=== PATIENT | female | born 1990 | race Caucasian/White ===

== ENCOUNTER 2017-01-20 08:25 | Outpatient (CLI) | payer MEDICAID ==
[2017-01-20 10:01] LABS: THYROID STIMULATING HORMONE 0.57 uIU/mL (0.34-5.60)
[2017-01-20 10:07] LABS: PROLACTIN 17.09 ng/mL
[2017-01-25 19:11] LABS: TEST RESULT REPORT
== END 2017-01-20 08:26 | disposition home or self-care (01) ==
LOC: LAB 08:25
PROVIDERS: ATTEND Internal Medicine Endocrinology, Diabetes & Metabolism
DX: E03.8 Other specified hypothyroidism (principal)
CPT/HCPCS: 36415; 81599; 82533; 83519; 84146; 84439; 84443; 86800

== ENCOUNTER 2017-01-25 15:56 | Outpatient (CLI) | payer MEDICAID | END 2017-01-25 15:57 | disposition home or self-care (01) | LOC: LAB.R 15:56 | PROVIDERS: ATTEND Obstetrics & Gynecology | DX: Z11.3 Encounter for screening for infections with a predominantly sexual mode of transmission (principal) | CPT/HCPCS: 87491; 87591 ==

== ENCOUNTER 2017-02-01 02:21 | Emergency (ER) | payer MEDICAID ==
[2017-02-01 02:46] LABS: BILIRUBIN,URINE NEGATIVE (NEGATIVE)
[2017-02-01 02:48] LABS: HCG UR QUAL POSITIVE; UA CHARGE (STRIP ONLY) YES; UR CULTURE IF IND NOT INDICATED
[2017-02-01 02:53] LABS: BASOPHILS % (AUTO) 0.2 %; EOSINOPHILS % (AUTO) 0.4 %; HCT - HEMATOCRIT 37.7 % (37.0-47.0); HGB - HEMOGLOBIN 13.2 g/dL (12.0-16.0); LYMPHOCYTES # (AUTO) 0.5 10^3/uL (1.5-3.5); LYMPHOCYTES % (AUTO) 5.3 %; MEAN CORPUSCULAR HEMOGLOBIN 29.7 pg (27.0-31.0); MEAN CORPUSCULAR HGB CONC 34.9 g/dL (32.0-36.0); MEAN PLATELET VOLUME 7.9 fL (7.9-10.8); MONOCYTES # (AUTO) 0.1 10^3/uL (0.0-1.0); MONOCYTES % (AUTO) 1.4 %; NEUTROPHILS # (AUTO) 8.7 10^3/uL (1.5-6.6); NEUTROPHILS % (AUTO) 92.7 %; RED BLOOD COUNT 4.43 10^6/uL (4.20-5.40); RED CELL DISTRIBUTION WIDTH 13.7 % (12.0-15.0); UNCORRECTED WHITE BLOOD COUNT 9.4 x10^3/uL; WHITE BLOOD COUNT 9.4 x10^3/uL (4.8-10.8)
[2017-02-01 03:05] LABS: ALBUMIN/GLOBULIN RATIO 1.6 (1.0-2.2); BILIRUBIN,TOTAL 0.9 mg/dL (0.2-1.0); CALCIUM 7.8 mg/dL (8.5-10.3); CREATININE 0.5 mg/dL (0.4-1.0); POTASSIUM 2.8 mmol/L (3.5-5.0); TOTAL PROTEIN 6.6 g/dL (6.7-8.2)
--- NOTE | 2017-02-01 03:16 | ED Physician Documentation ---
PD HPI ABD PAIN - Stated complaint Stated Complaint: N/V, ABD PAIN, - Chief complaint Chief Complaint: Abd Pain - History obtained from History obtained from: Patient - History of Present Illness Timing - onset: Enter time (00:00 (midnight)), How many hours ago (3), Today Timing - duration: Hours Timing - details: Abrupt onset Pain level now: 3 Quality: Pain Location: All over / everywhere Radiation: Other (no radiation) Improved by: Other (no ameliorating factors) Worsened by: Eating Associated symptoms: Nausea, Vomiting. No: Fever (denies fever, although she is febrile in ED at triage), Diarrhea, Loss of appetite Recently seen: Clinic (had outpatient US few days ago, revealed IUP (she has picture of this and shows it to me)) - Additional information Additional information: c/o nausea, vomiting for over a week, but intermittent until past several hours when it became persistent. now unable to tolerate any PO including sips of water. does not have antinauseants at home. she is approximately 7 weeks . also has cramping abdominal pain (when she vomits). this is her second ; first was and only mild morning sickness . Review of Systems Constitutional: reports: Fever (she is /was unaware of fever, but fever detected in triage tonight). denies: Chills, Sweats Ears: denies: Ear pain Nose: reports: Reviewed and negative Throat: reports: Sore throat (from all the vomiting (per patient)) Cardiac: reports: Reviewed and negative Respiratory: reports: Reviewed and negative GI: reports: Abdominal Pain, Nausea, Vomiting : reports: Now EGA (7 weeks). denies: Dysuria, Frequency PD PAST MEDICAL HISTORY - Past Medical History Past Medical History: Yes Cardiovascular: None Respiratory: None Neuro: None Endocrine/Autoimmune: HyPOthyroidism GI: None LAUNDRY TECHNICIAN: None : None HEENT: None Psych: None Musculoskeletal: None Derm: None - Past Surgical History Past Surgical History: Yes General: Appendectomy /LAUNDRY TECHNICIAN: section HEENT: Tonsil/Adenoidectomy - Present Medications Home Medications: Ambulatory Orders Medication Instructions Recorded Confirmed Levothyroxine Sodium [Levothroid] 150 mcg PO DAILY 09/05/12 04/08/14 Clindamycin [Cleocin] 300 mg PO Q6H #28 capsule 03/09/16 HYDROcod/ACETAM 5/325 [[place] 5/325] 1 - 2 ea PO Q6H PRN #15 tablet 03/09/16 Levonorgestrel-Ethin Estradiol 1 each PO 03/09/16 03/09/16 [Jolessa] Metoclopramide [Reglan] 10 mg PO Q6H PRN #14 tablet 02/01/17 - Allergies Allergies/Adverse Reactions: Allergies Allergy/AdvReac Type Severity Reaction Status Date / Time Penicillins Allergy Intermediate Edema Verified 09/05/12 09:12 - Social History Does the pt smoke?: No Smoking Status: Former smoker Does the pt drink ETOH?: No Does the pt have substance abuse?: Yes Substance Use and Type: Marijuana - Immunizations Immunizations are current?: Yes - POLST Patient has POLST: No PD ED PE NORMAL - Vitals Vital signs reviewed: Yes - General General: Alert and oriented X 3, No acute distress, Well developed/nourished - HEENT HEENT: Other (dry mucous membranes) - Neck Neck: Supple, no meningeal sign - Cardiac Cardiac: RRR, No murmur - Respiratory Respiratory: No respiratory distress, Clear bilaterally - Abdomen Abdomen: Normal bowel sounds, Soft, Non tender, Non distended - Back Back: No CVA TTP - Derm Derm: Normal color, Warm and dry Results - Vitals Vitals: Vital Signs - 24 hr 02/01/17 02/01/17 02/01/17 02:25 05:29 06:31 Temperature 38.2 C H 37.1 C Heart Rate 107 H 89 78 Respiratory 22 16 18 Rate Blood Pressure 114/66 113/58 L 121/70 O2 Saturation 100 97 100 Oxygen O2 Source Room air - Labs Labs: Laboratory Tests 02/01/17 02/01/17 02/01/17 02:30 02:43 02:43 WBC 9.4 RBC 4.43 Hgb 13.2 Hct 37.7 MCV 85.0 MCH 29.7 MCHC 34.9 RDW 13.7 Plt Count 154 MPV 7.9 Neut # 8.7 H Lymph # 0.5 L Bland # 0.1 Eos # 0.0 Baso # 0.0 Absolute Nucleated RBC 0.00 Nucleated RBC % 0.0 Sodium 131 L Potassium 2.8 L Chloride 102 Carbon Dioxide 18 L Anion Gap 11.0 BUN 10 Creatinine 0.5 Estimated GFR (MDRD) 147 Glucose 109 H Calcium 7.8 L Total Bilirubin 0.9 AST 21 ALT 13 Alkaline Phosphatase 37 L Total Protein 6.6 L Albumin 4.1 Globulin 2.5 Albumin/Globulin Ratio 1.6 Lipase 19 L HCG, Quant Urine Color YELLOW Urine Clarity CLEAR Urine pH 6.0 Ur Specific [place] 1.015 Urine Protein NEGATIVE Urine Glucose (UA) NEGATIVE Urine Ketones NEGATIVE Urine Occult Blood NEGATIVE Urine Nitrite NEGATIVE Urine Bilirubin NEGATIVE Urine Urobilinogen 0.2 (NORMAL) Ur Leukocyte Esterase NEGATIVE Ur Microscopic Review NOT INDICATED Urine Culture Comments NOT INDICATED Urine HCG, Qual POSITIVE 02/01/17 02:43 WBC RBC Hgb Hct MCV MCH MCHC RDW Plt Count MPV Neut # Lymph # B[place] # Eos # Baso # Absolute Nucleated RBC Nucleated RBC % Sodium Potassium Chloride Carbon Dioxide Anion Gap BUN Creatinine Estimated GFR (MDRD) Glucose Calcium Total Bilirubin AST ALT Alkaline Phosphatase Total Protein Albumin Globulin Albumin/Globulin Ratio Lipase HCG, Quant 403902.00 Urine Color Urine Clarity Urine pH Ur Specific [place] Urine Protein Urine Glucose (UA) Urine Ketones Urine Occult Blood Urine Nitrite Urine Bilirubin Urine Urobilinogen Ur Leukocyte Esterase Ur Microscopic Review Urine Culture Comments Urine HCG, Qual PD MEDICAL DECISION MAKING - ED course Complexity details: reviewed results, considered differential, d/w patient ED course: patient specifically states she does not want Zofran, as she is concerned about the data that suggests a link to defects. thus, Reglan was given to good effect: patient, on reevaluation after tests were resulted and 1500 mL of normal saline infused, had moist mucous membranes, appeared comfortable, and reported substantial relief of her nausea and resolution of her vomiting. She was able to tolerate oral potassium prior to discharge.ultrasound was not performed, as patient had recent ultrasound demonstrating IUP, and patient denies pelvic pain, denies vaginal bleeding. Departure - Departure Disposition: 01 Home, Self Care Clinical Impression: Hypokalemia Qualifiers: Weeks of gestation: less than 8 weeks Qualified Code(s): Z3A.01 - Less than 8 weeks gestation of Vomiting Qualifiers: Vomiting type: unspecified Vomiting Intractability: non-intractable Nausea presence: with nausea Qualified Code(s): R11.2 - Nausea with vomiting, unspecified Fever Qualifiers: Fever type: unspecified Qualified Code(s): R50.9 - Fever, unspecified Condition: Good Instructions: ED Fever Unconf Cause, ED Preg Morning Sickness, ED Potassium Deficiency Follow-Up: Isaiah Garcia MD [Provider Admit Priv/Credential] - Prescriptions: Metoclopramide [Reglan] 10 mg PO Q6H PRN #14 tablet PRN Reason: Nausea / Vomiting Discharge Date/Time: 02/01/17 06:31
[2017-02-01] MEDS ORDERED: METOCLOPRAMIDE 10 MG/2 ML VIAL IVP STA (03:43)
[2017-02-01] MEDS ORDERED: SODIUM CHLORIDE 0.9% 1,000 ML IV STA ×2 (03:43→03:58)
[2017-02-01] MEDS ORDERED: ACETAMINOPHEN 1,000 MG/100 ML 100 ML IV STA (03:43)
[2017-02-01] MEDS ORDERED: ACETAMINOPHEN 1,000 MG/100 ML 100 ML IV ONE (03:50)
[2017-02-01] MEDS ORDERED: METOCLOPRAMIDE 10 MG/2 ML VIAL ONE (03:50)
[2017-02-01] MEDS ORDERED: POTASSIUM BICARB 25 MEQ TABLET PO STA (04:58)
[2017-02-01] MEDS ORDERED: POTASSIUM BICARB 25 MEQ TABLET PO ONE (05:07)
[2017-02-01 06:32] VITALS: BP 121/70
== END 2017-02-01 06:31 | disposition home or self-care (01) ==
LOC: EDUNIT# → ED 02:21
DX: O26.891 Other specified pregnancy related conditions, first trimester (principal); E87.6 Hypokalemia; O21.9 Vomiting of pregnancy, unspecified; Z3A.01 Less than 8 weeks gestation of pregnancy; E03.9 Hypothyroidism, unspecified; Z87.891 Personal history of nicotine dependence
CPT/HCPCS: 36415; 80053; 81003; 81025; 83690; 84702; 85025; 96361; 96365; 96375; 99284; A9270; J0131; 81001; 87086

== ENCOUNTER 2017-03-25 09:43 | Outpatient (CLI) | payer MEDICAID ==
[2017-03-25 15:53] LABS: BASOPHILS % (AUTO) 0.2 %; EOSINOPHILS # (AUTO) 0.3 10^3/uL (0.0-0.7); EOSINOPHILS % (AUTO) 2.8 %; HGB - HEMOGLOBIN 12.6 g/dL (12.0-16.0); LYMPHOCYTES # (AUTO) 2.2 10^3/uL (1.5-3.5); LYMPHOCYTES % (AUTO) 23.2 %; MEAN CORPUSCULAR HEMOGLOBIN 30.7 pg (27.0-31.0); MEAN CORPUSCULAR HGB CONC 35.3 g/dL (32.0-36.0); MONOCYTES # (AUTO) 0.4 10^3/uL (0.0-1.0); MONOCYTES % (AUTO) 3.8 %; NEUTROPHILS # (AUTO) 6.7 10^3/uL (1.5-6.6); PLT - PLATELET COUNT 197 10^3/uL (130-450); RED BLOOD COUNT 4.09 10^6/uL (4.20-5.40); WHITE BLOOD COUNT 9.6 x10^3/uL (4.8-10.8)
[2017-03-25 16:23] LABS: THYROID STIMULATING HORMONE 1.61 uIU/mL (0.34-5.60)
[2017-03-25 16:24] LABS: FREE T4 (FREE THYROXINE) 0.8 ng/dL (0.58-1.64)
[2017-03-25 16:58] LABS: BILIRUBIN,URINE NEGATIVE (NEGATIVE); GLUCOSE, URINE (UA) NEGATIVE (NEGATIVE); KETONES,URINE (UA) NEGATIVE (NEGATIVE); LEUKOCYTE ESTERASE, URINE NEGATIVE (NEGATIVE); NITRITE,URINE NEGATIVE (NEGATIVE); OCCULT BLOOD,URINE NEGATIVE (NEGATIVE); PH,URINE 7.5 PH (5.0-7.5); PROTEIN,URINE NEGATIVE (NEGATIVE); UROBILINOGEN,URINE 0.2 (NORMAL) E.U./dL (NORMAL)
[2017-03-25 17:13] LABS: CLARITY,URINE CLEAR (CLEAR)
[2017-03-25 17:14] LABS: RBC,URINE 0-5 /HPF (0-5); SQUAMOUS EPITHELIAL CELL,UR RARE Squamous (<= Few)
[2017-03-25 17:15] LABS: BACTERIA,URINE None Seen /HPF (None Seen)
[2017-03-26 11:51] LABS: HIV AG/AB 4TH GEN NON-REACTIVE (NON-REACTIVE)
[2017-03-26 13:23] LABS: HEPATITIS B SURFACE ANTIGEN NON-REACTIVE (NON-REACTIVE)
== END 2017-03-25 09:44 | disposition home or self-care (01) ==
LOC: LAB.N 09:43
PROVIDERS: ATTEND Obstetrics & Gynecology
DX: Z36.9 Encounter for antenatal screening, unspecified (principal); Z13.29 Encounter for screening for other suspected endocrine disorder; C73 Malignant neoplasm of thyroid gland; E23.6 Other disorders of pituitary gland
CPT/HCPCS: 36415; 81001; 81599; 82024; 84305; 84439; 84443; 85025; 86592; 86762; 86850; 86900; 86901; 87340; 87389

== ENCOUNTER 2017-04-28 07:28 | Outpatient (CLI) | payer MEDICAID ==
--- NOTE | 2017-04-28 12:39 | Ultrasound Report ---
DATE OF SERVICE: 04/28/2017 OB ULTRASOUND: 04/28/2017 CLINICAL INDICATION: anatomy. TECHNIQUE: Real-time scanning was performed with insurance representative static images obtained. LAST MENSTRUAL PERIOD Clinical Age --- US Age 20 weeks 1 day EFW Hadlock 324 g EFW% Hadlock --- Heart Rate 150 bpm EDC --- US EDC 09/14/2017 BPD [place] 20 weeks 3 days; Mean mm 47.5 HC [place] 20 weeks 2 days; Mean mm 178.9 AC [place] 20 weeks 1 day; Mean mm 149.4 FL [place] 19 weeks 4 days; Mean mm 30.9 Presentation variable Placental Location posterior Cervical Length 3.5 cm Amniotic Fluid 4.3 cm FINDINGS: There is a single viable intrauterine gestation, in variable position. heart rate is 150 BPM. The placenta is posterior without evidence of previa. Amniotic fluid volume is subjectively normal, with a deepest pocket of 4.3. By size, the fetus measures 20 weeks 1 day (20 weeks 2 days by LMP). The following anatomic structures were visualized and appear normal: The intracranial contents, including the ventricles and posterior fossa; the lips and orbits; the spine; the heart, including 4 chamber view and outflow tracts, and diaphragm; the abdominal contents, including the stomach, the bilateral kidneys, and urinary bladder, as well as a normal 3 vessel cord insertion; 4 limbs. No free fluid or adnexal lesion is appreciated. IMPRESSION: SINGLE VIABLE INTRAUTERINE GESTATION, WITH SIZE IN KEEPING WITH LMP DATING. NORMAL ANATOMIC SURVEY. TD: 04/28/2017 12:28 [facility]
== END 2017-04-28 07:29 | disposition home or self-care (01) ==
LOC: DI 07:28
PROVIDERS: ATTEND Obstetrics & Gynecology
DX: Z36.9 Encounter for antenatal screening, unspecified (principal)
CPT/HCPCS: 76811

== ENCOUNTER 2017-05-01 20:13 | Outpatient (CLI) | payer MEDICAID ==
[2017-05-01] MEDS ORDERED: HYDROcod/ACETAM 5/325 MG TABLET PO PRN (21:01)
[2017-05-01 21:09] VITALS: BP 125/68
== END 2017-05-01 21:55 | disposition home or self-care (01) ==
LOC: WFO 20:13 → FBP 20:15 → WFO 21:55
PROVIDERS: ATTEND Obstetrics & Gynecology
DX: O99.89 Other specified diseases and conditions complicating pregnancy, childbirth and the puerperium (principal); Z3A.20 20 weeks gestation of pregnancy; M54.5 Low back pain
CPT/HCPCS: 99212; A9270

== ENCOUNTER 2017-05-17 10:53 | Outpatient (CLI) | payer MEDICAID ==
[2017-05-17 12:55] LABS: T4 (THYROXINE) 14.34 ug/dL (6.09-12.23)
[2017-05-17 12:59] LABS: THYROID STIMULATING HORMONE 0.41 uIU/mL (0.34-5.60)
[2017-05-17 13:01] LABS: FREE T4 (FREE THYROXINE) 0.89 ng/dL (0.58-1.64)
== END 2017-05-17 10:54 | disposition home or self-care (01) ==
LOC: LAB.N 10:53
PROVIDERS: ATTEND Internal Medicine Endocrinology, Diabetes & Metabolism
DX: E03.8 Other specified hypothyroidism (principal); C73 Malignant neoplasm of thyroid gland
CPT/HCPCS: 36415; 81599; 84436; 84439; 84443

== ENCOUNTER 2017-06-09 10:56 | Outpatient (CLI) | payer MEDICAID ==
[2017-06-09 11:21] VITALS: BP 113/70
[2017-06-09 11:27] LABS: BILIRUBIN,URINE NEGATIVE (NEGATIVE); CLARITY,URINE CLEAR (CLEAR); GLUCOSE, URINE (UA) NEGATIVE (NEGATIVE); KETONES,URINE (UA) NEGATIVE (NEGATIVE); LEUKOCYTE ESTERASE, URINE NEGATIVE (NEGATIVE); NITRITE,URINE NEGATIVE (NEGATIVE); OCCULT BLOOD,URINE NEGATIVE (NEGATIVE); PH,URINE 7.5 PH (5.0-7.5); PROTEIN,URINE NEGATIVE (NEGATIVE); UROBILINOGEN,URINE 0.2 (NORMAL) E.U./dL (NORMAL)
[2017-06-09 11:35] LABS: BACTERIA,URINE Rare /HPF (None Seen); RBC,URINE 0-5 /HPF (0-5); SQUAMOUS EPITHELIAL CELL,UR FEW Squamous (<= Few)
[2017-06-09 12:39] LABS: RUPTURE OF MEMBRANES PLUS NEGATIVE (NEGATIVE)
--- NOTE | 2017-06-09 14:25 | HISTORY & PHYSICAL EXAMINATION ---
DATE OF SERVICE: 06/09/2017 Physician: Isaiah Fontana MD DIAGNOSES 1. Labor and delivery check for uterine contractions and possible rupture of membranes. 2. Patient not in labor and rupture of membranes ruled out. HISTORY OF PRESENT ILLNESS: The patient is a 26-year-old 2, para 1 woman, who [facility] and notes starting at 7 o'clock yesterday flurries of contractions that have seemed to strengthen. She does not report overt leakage of fluid, but does have excessive discharge. She has no fevers, chills or urinary tract symptoms. She is status prior section in 2014. PHYSICAL EXAMINATION GENERAL: The patient is calm, lying comfortably in bed. ABDOMEN: Soft, nontender. No organomegaly. Gravid uterus consistent with dates, approximately 27 cm, normal resting tone. No contractions palpated. External monitor category 1, some irritability. PELVIC: External genitalia with no lesions. VAGINA: Creamy discharge, fern sample taken and negative. CERVIX: Long, thick, closed. Cervical length measurement pending. The patient does not seem to be in labor by physical examination and tracing. She was given reassurance. We will await baseline cervical length measurement. She is instructed to keep her next regularly scheduled appointment. TD: 06/09/2017 14:25
--- NOTE | 2017-06-09 17:30 | Ultrasound Report ---
LIMITED OB ULTRASOUND: 06/09/2017 CLINICAL INDICATION: contractions, check cervix. COMPARISON: 04/28/2017 TECHNIQUE: Real-time scanning was performed with plastic products sales representative static images obtained. FINDINGS: There is a single viable intrauterine gestation, in cephalic presentation. heart rate is 161 BPM. The cervix measures 3.8 cm, and is closed. IMPRESSION: A 3.8 CM CERVIX. SINGLE VIABLE INTRAUTERINE GESTATION. TD: 06/09/2017 17:29
== END 2017-06-09 13:25 | disposition home or self-care (01) ==
LOC: WFO 10:56 → FBP 10:57 → WFO 13:25
PROVIDERS: ATTEND Obstetrics & Gynecology
DX: Z34.82 Encounter for supervision of other normal pregnancy, second trimester (principal)
CPT/HCPCS: 76815; 81001; 82731; 84112; 87086; 99214

== ENCOUNTER 2017-06-23 09:31 | Outpatient (CLI) | payer MEDICAID ==
[2017-06-23 11:05] LABS: HGB - HEMOGLOBIN 12.6 g/dL (12.0-16.0); MEAN CORPUSCULAR HEMOGLOBIN 30.2 pg (27.0-31.0); MEAN CORPUSCULAR HGB CONC 34.2 g/dL (32.0-36.0); MEAN CORPUSCULAR VOLUME 88.5 fL (81.0-99.0); MEAN PLATELET VOLUME 8.4 fL (7.9-10.8); RED BLOOD COUNT 4.18 10^6/uL (4.20-5.40); RED CELL DISTRIBUTION WIDTH 13.1 % (12.0-15.0); WHITE BLOOD COUNT 14.2 x10^3/uL (4.8-10.8)
== END 2017-06-23 09:32 | disposition home or self-care (01) ==
LOC: LAB 09:31
PROVIDERS: ATTEND Obstetrics & Gynecology
DX: Z34.90 Encounter for supervision of normal pregnancy, unspecified, unspecified trimester (principal)
CPT/HCPCS: 36415; 82950; 86850

== ENCOUNTER 2017-06-28 08:00 | Outpatient (CLI) | payer MEDICAID ==
[2017-06-28 19:51] LABS: THYROID STIMULATING HORMONE 0.15 uIU/mL (0.34-5.60)
[2017-06-28 19:52] LABS: FREE T4 (FREE THYROXINE) 0.89 ng/dL (0.58-1.64)
== END 2017-06-28 08:01 | disposition home or self-care (01) ==
LOC: LAB.N 08:00
PROVIDERS: ATTEND Internal Medicine Endocrinology, Diabetes & Metabolism
DX: C73 Malignant neoplasm of thyroid gland (principal); E03.8 Other specified hypothyroidism; E23.6 Other disorders of pituitary gland
CPT/HCPCS: 36415; 84439; 84443; 84481

== ENCOUNTER 2017-07-25 17:56 | Observation (INO) | payer MEDICAID ==
[2017-07-25 19:45] LABS: BASOPHILS % (AUTO) 0.1 %; EOSINOPHILS # (AUTO) 0.3 10^3/uL (0.0-0.7); EOSINOPHILS % (AUTO) 3.1 %; HGB - HEMOGLOBIN 11.9 g/dL (12.0-16.0); LYMPHOCYTES # (AUTO) 2.9 10^3/uL (1.5-3.5); LYMPHOCYTES % (AUTO) 26.8 %; MEAN CORPUSCULAR HEMOGLOBIN 29.3 pg (27.0-31.0); MEAN CORPUSCULAR HGB CONC 33.2 g/dL (32.0-36.0); MEAN CORPUSCULAR VOLUME 88.4 fL (81.0-99.0); MEAN PLATELET VOLUME 8.6 fL (7.9-10.8); MONOCYTES # (AUTO) 0.8 10^3/uL (0.0-1.0); NEUTROPHILS # (AUTO) 6.8 10^3/uL (1.5-6.6); PLT - PLATELET COUNT 302 10^3/uL (130-450); RED BLOOD COUNT 4.06 10^6/uL (4.20-5.40); RED CELL DISTRIBUTION WIDTH 13.4 % (12.0-15.0); WHITE BLOOD COUNT 10.8 x10^3/uL (4.8-10.8)
[2017-07-25 19:53] LABS: ALBUMIN/GLOBULIN RATIO 0.9 (1.0-2.2); BILIRUBIN,TOTAL 0.2 mg/dL (0.2-1.0); CALCIUM 8.5 mg/dL (8.5-10.3); CREATININE 0.5 mg/dL (0.4-1.0); TOTAL PROTEIN 6.5 g/dL (6.7-8.2)
[2017-07-25] MEDS ORDERED: DEXTROSE 5%-LACTATED RINGERS 1,000 ML IV SCH (20:00)
[2017-07-25] MEDS ORDERED: AZITHROMYCIN 250 MG TABLET PO SCH (20:00)
--- NOTE | 2017-07-25 20:25 | XRAY Report ---
EXAM: CHEST RADIOGRAPHY EXAM DATE: 07/25/2017 07:46 PM. CLINICAL HISTORY: Cough and shortness of breath for one week. Patient is . COMPARISON: None. TECHNIQUE: 2 views. Abdomen and pelvis are shielded. FINDINGS: Lungs/Pleura: No focal opacities evident. No pleural effusion. No pneumothorax. Normal volumes. Mediastinum: Heart and mediastinal contours are unremarkable. Other: None. IMPRESSION: Normal 2-view chest radiography. [facility] Referring Provider Line: [phone] SITE ID: [id number]
--- NOTE | 2017-07-25 20:25 | XRAY Preliminary Report ---
Exam: XR CHEST 2 VIEW X-RAY IMPRESSION: Normal 2-view chest radiography. [facility] SITE ID: [id number]
[2017-07-25] MEDS ORDERED: SODIUM CHLORIDE FLUSH 0.9% 10 ML SYRINGE ONE (20:36)
[2017-07-25] MEDS: guaiFENesin/DEXTROMETHORPHAN 10 ML UDC PO PRN (20:53)
[2017-07-25] MEDS: ACETAMINOPHEN/CODEINE 300 MG/30 MG TABLET PO PRN (20:58)
--- NOTE | 2017-07-25 21:11 | HISTORY & PHYSICAL EXAMINATION ---
DATE OF SERVICE: 07/25/2017 Physician: Isaiah Garcia MD PATIENT IDENTIFICATION: Patient is a 26-year-old G2, P1, female whose EDC is September 2017, making her 33 weeks 0 days. This is with early exams and visits. CHIEF COMPLAINT: Rib pain and back pain with chronic cough. HISTORY OF PRESENT ILLNESS: Patient states over the last 10 days, she has had difficulty with cough. This is nonproductive. She states that this will be quite severe at this time. She has had some episodes of temps. She also notes a nasal discharge, which is brown. She denies any history of asthma. She states she has a son who has pneumonia as well as bilateral otitis media. She has received all of her shots such as flu as well as Tdap. She denies any prior episodes. PAST MEDICAL HISTORY 1. Positive for hypothyroidism. 2. She has a history of having Graves disease as well as thyroid cancer. PAST SURGICAL HISTORY 1. Positive for thyroidectomy. 2. Appendectomy. 3. Tonsillectomy. 4. As well as, open reduction of a fracture of the right elbow. 5. She has also had a section. ALLERGIES: PENICILLIN, WHICH CAUSES HIVES. CURRENT MEDICATIONS 1. 175 mg of levothyroxine. 2. She is also taking vitamins. 3. Doxylamine. HABITS: The patient denies use of tobacco or alcohol. Does do occasional tetrahydrocannabinol. SOCIAL HISTORY: The patient is and lives with her spouse and child. 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 PHYSICAL EXAMINATION GENERAL: Well-developed, well-nourished white female who is coughing episodically with a loose cough, but denies any production. VITAL SIGNS: Temperature is 36.6, pulse is 85, blood pressure 101/84, respirations 23. She is sating anywhere from 98-100%. HEENT: Pupils equal, round. Extraocular muscles are intact. There is no evidence of scleral icterus. The thyroid is not palpably enlarged. neck scar from thyroidectomy. HEART: Regular rate and rhythm without murmurs. LUNGS: Lung barrett are clear without rales or wheezes. She has a loose cough at this particular time. She is not noted to have any rales or localizing wheezes at this time. It is difficult to auscultate her secondary to her coughing episodes when she does deep breathe. She does have throughout chest pain, on the muscles of both the paraspinals as well as the ribs. ABDOMEN: Soft, nontender. The uterus is gravid. She has a positive NST. BACK: No spinal or CVA tenderness. EXTREMITIES: There is no evidence of any calf tenderness. IMPRESSION: A 26-year-old G2, P1, female 33.0 weeks with cough and a feeling of malaise. At this particular time, we are ruling out pneumonia. PLAN: Obtain chest x-ray, CBC, CMP, BNP. I am also obtaining an internal medicine consult. We will start her on azithromycin for antibiotics. We will adjust her antibiotics as internal medicine recommends. TD: 07/25/2017 21:10 OSVALDO
[2017-07-26] MEDS: OXYMETAZOLINE NASAL SPRAY NAS SCH ×3 (00:41→21:01)
[2017-07-26] MEDS: guaiFENesin 600 MG TABLET PO SCH ×2 (00:41→18:38)
[2017-07-26] MEDS: oxyCODONE 5 MG TABLET PO PRN ×4 (00:43→17:11)
--- NOTE | 2017-07-26 01:19 | CONSULTATION NOTE ---
DATE OF SERVICE: 07/25/2017 Physician: Nhi Rea MD HISTORY OF PRESENT ILLNESS: This is a 26-year-old white female with history of being approximately 30 weeks , she is G2, P2. Patient is experiencing about 2 -3 days of a chronic cough, nonproductive, but loose, with nasal congestion, headache and bilateral lower rib pain from the recent coughing. There has been no fever. It is "hard to breath when she lays flat". She has been exposed to her young son who has bilateral pneumonia and otitis media. She presented with these complaints to the [facility] and is being placed in Observation for management of her respiratory complaints. The Hospitalist Service has been requested for consultation. MEDICATIONS 1. Reglan p.r.n. 2. Levothroid 150 mcg daily. 3. Heth p.r.n. pain. 4. Clindamycin 300 mg p.o. q.i.d. 5. vitamins. ALLERGIES: PENICILLIN. PAST MEDICAL HISTORY: Hyperthyroidism with Graves disease as well as thyroid cancer with a thyroidectomy and on thyroid replacement now. Previous and delivery of a healthy child. History of appendectomy and tonsillectomy, and prior C- section. SOCIAL HISTORY: No cigarette use or alcohol use. She has rare pot smoking. FAMILY HISTORY: No inherited diseases. REVIEW OF SYSTEMS: A comprehensive review of systems was performed and pertinent positives and negatives are above. PHYSICAL EXAMINATION: GENERAL: She is a young white female. She has marked nasal congestion when speaking and she appears uncomfortable from the pain from her headache and her ribs and she is splinting. VITAL SIGNS: Blood pressure 110/80, heart rate is 84, in sinus rhythm. She is afebrile. Room air saturation 97%. HEENT: Reveals injected sclerae. Nasal congestion. Possible tenderness over the maxillary sinuses. Oral mucosa moist. NECK: Without lymphadenopathy or JVD. CHEST: Diminished breath sounds with poor inspiratory effort, but no wheezing or rales. HEART: Heart sounds normal. ABDOMEN: Has signs of . EXTREMITIES: No clubbing, cyanosis or edema. NEUROLOGIC: Intact. LABORATORIES: Normal electrolytes. Normal BUN and creatinine. Normal liver tests. Albumin 3.0. White blood count 10.8 with a left shift, hemoglobin 11.9, platelet count normal. BNP 20. BNP 20. IMPRESSION/DIAGNOSES 1. Upper respiratory infection with nasal congestion. 2. Bronchitis. 3. Rib pain from chronic coughing. 4. . RECOMMENDATIONS: Start the patient on Afrin nasal spray for immediate local relief of her nasal mucosal swelling and congestion. Start the patient on Zithromax IV for aggressive treatment of the bronchitis and possible sinusitis. Treat the rib pain with codeine to prevent splinting and a pneumonia. Promote her expectoration of phlegm by using Mucinex and chest physical therapy. Robitussin DM will also be used for cough suppression and decongestion along with the Mucinex. Since there is no wheezing or history of asthma, no Prednisone is advised at this time. Continue with her management of the and her hypothyroidism after thyroidectomy. Thank you for allowing us to participate in the care of this patient. DEEP VENOUS THROMBOSIS PROPHYLAXIS: Recommend SCDs. CODE STATUS: FULL CODE. TD: 07/26/2017 01:19 MTDD
[2017-07-26] MEDS: guaiFENesin/DEXTROMETHORPHAN 10 ML UDC PO PRN ×2 (05:10→20:55)
[2017-07-26] MEDS ORDERED: LEVALBUTEROL 1.25 MG/3 ML NEB INH SCH (08:00)
[2017-07-26] MEDS ORDERED: SODIUM CHLORIDE FLUSH 0.9% 10 ML SYRINGE ONE ×2 (08:10→18:48)
--- NOTE | 2017-07-26 08:21 | PROVIDER PROGRESS NOTE ---
Subjective - Prog Note Date Prog Note Date: 07/26/17 Prog Note Time: 08:19 - Subjective Pt reports feeling: No change (Pt developed Air hunger this AM. Sating at 97% on RA. Still C/o thorasic CP with cough adn deep breathing. Good FM. Denus Contractions.) Objective - Vital Signs/Intake & Output Reviewed Vital Signs: Yes Vital Signs: Vital Signs x48h Temp Pulse Pulse Resp BP Pulse Ox 07/26/17 07:54 36.5 C 77 21 113/61 97 07/26/17 07:40 90 18 07/26/17 06:50 77 24 114/62 95 07/26/17 04:42 36.5 C 80 16 125/75 97 Intake & Output: Intake & Output 07/23/17 07/24/17 07/25/17 07/26/17 23:59 23:59 23:59 23:59 Intake Total 720 1657.496 Output Total 300 950 Balance 420 707.496 - Objective General Appearance: positive: No acute distress (Sitting up in bed eating) Respiratory: positive: No respiratory distress, Wheezes (through out.). negative: Chest non-tender (Chest muscles tender to palpation) Cardiovascular: positive: Regular rate & rhythm, No murmur, No gallop Abdomen: positive: Non-tender, Nml bowel sounds, No distention, Mass (Uterus is nontender) Extremities: negative: Calf tenderness, Jae's sign/cords Neurologic/Psychiatric: positive: Oriented x3 - Lab Results Fish Bones: 07/25/17 19:26 07/25/17 19:26 Other Labs: Lab Results x24hrs 07/25/17 07/25/17 07/25/17 Range/Units 19:26 19:26 19:26 WBC 10.8 (4.8-10.8) x10^3/uL RBC 4.06 L (4.20-5.40) 10^6/uL Hgb 11.9 L (12.0-16.0) g/dL Hct 35.9 L (37.0-47.0) % MCV 88.4 (81.0-99.0) fL MCH 29.3 (27.0-31.0) pg MCHC 33.2 (32.0-36.0) g/dL RDW 13.4 (12.0-15.0) % Plt Count 302 (130-450) 10^3/uL MPV 8.6 (7.9-10.8) fL Neut # 6.8 H (1.5-6.6) 10^3/uL Lymph # 2.9 (1.5-3.5) 10^3/uL [place] # 0.8 (0.0-1.0) 10^3/uL Eos # 0.3 (0.0-0.7) 10^3/uL Baso # 0.0 (0.0-0.1) 10^3/uL Absolute Nucleated RBC 0.00 x10^3/uL Nucleated RBC % 0.0 /100WBC Sodium 136 (135-145) mmol/L Potassium 3.7 (3.5-5.0) mmol/L Chloride 102 (101-111) mmol/L Carbon Dioxide 25 (21-32) mmol/L Anion Gap 9.0 (6-13) BUN 6 (6-20) mg/dL Creatinine 0.5 (0.4-1.0) mg/dL Estimated GFR (MDRD) 147 (>89) Glucose 109 H (70-100) mg/dL Calcium 8.5 (8.5-10.3) mg/dL Total Bilirubin 0.2 (0.2-1.0) mg/dL AST 20 (10-42) IU/L ALT 15 (10-60) IU/L Alkaline Phosphatase 90 (42-121) IU/L B-Natriuretic Peptide 20 (5-100) pg/mL Total Protein 6.5 L (6.7-8.2) g/dL Albumin 3.0 L (3.2-5.5) g/dL Globulin 3.5 (2.1-4.2) g/dL Albumin/Globulin Ratio 0.9 L (1.0-2.2) Assessment/Plan - Problem List (1) Bronchitis Impression: Pt has developed wheezes. started breathing treatments. Cardiac Echo ordered.
[2017-07-26] MEDS: LEVOTHYROXINE 125 MCG TABLET PO SCH (08:33)
[2017-07-26] MEDS: PRENATAL VITAMIN TABLET PO SCH (08:34)
[2017-07-26] MEDS: LEVALBUTEROL 1.25 MG/3 ML NEB INH PRN ×2 (11:20→19:38)
[2017-07-26] MEDS: ACETAMINOPHEN/CODEINE 300 MG/30 MG TABLET PO PRN ×2 (11:55→20:54)
--- NOTE | 2017-07-26 13:40 | PROVIDER PROGRESS NOTE ---
Assessment/Plan - Problem List (1) Upper respiratory infection with cough and congestion Assessment/Plan: Patient continues to be symptomatic today She is having continued dry cough, congestion and trouble breathing Continue Afrin, mucinex, robitussin and azithromycin Started on nebs today No need for O2 Continue to monitor (2) Bronchitis Assessment/Plan: Patient has coughing and upper respiratory infection with likely bronchitis CXR negative for pneumonia Will continue medication as above (3) Rib pain Assessment/Plan: Patient has rib pain on the left side secondary to coughing No fracture seen on CXR Started on oxycodone prn Pain controlled with pain meds but worsens with coughing (4) Reactive airway disease Qualifiers: Asthma severity: mild Asthma persistence: unspecified Qualified Code(s): J45.909 - Unspecified asthma, uncomplicated Assessment/Plan: The patient had shortness of breath and wheezing this am No history of asthma Appears to have reactive airway disease likely secondary to URI and bronchitis Started on nebs today Echo ordered to rule out cardiomyopathy (5) Qualifiers: Weeks of gestation: 30 weeks Qualified Code(s): Z3A.30 - 30 weeks gestation of Assessment/Plan: OB is monitoring All meds run through OB before being started - Current Meds Current Meds: Current Medications Generic Name Dose Route Start Last Admin Trade Name Freq PRN Reason Stop Dose Admin Acetaminophen/Codeine Phosphate 1 tab 07/25/17 20:21 07/26/17 11:55 Tylenol #3 PO 1 tab Q4HR PRN Administration PAIN Guaifenesin 10 ml 07/25/17 19:46 07/26/17 05:10 Robitussin Dm PO 10 ml Q6HR PRN Administration Cough Guaifenesin 600 mg 07/25/17 22:00 07/26/17 00:41 Mucinex PO 600 mg BID ANIA Administration Dextrose/Lactated Ringer's 1,000 mls @ 83.333 mls/hr 07/25/17 20:00 07/26/17 08:07 D5lr IV 80 mls/hr .Q12H ANIA Infusion Levalbuterol HCl 1.25 mg 07/26/17 11:00 07/26/17 11:20 Xopenex INH 1.25 mg RTQ4H PRN Administration WHEEZING/SHORTNESS Levothyroxine Sodium 175 mcg 07/25/17 20:00 07/26/17 08:33 Synthroid PO 175 mcg QDAC ANIA Administration Oxycodone HCl 5 mg 07/26/17 00:05 07/26/17 09:27 Roxicodone PO 5 mg Q4HR PRN Administration PAIN Oxymetazoline HCl 1 sprays 07/26/17 01:00 07/26/17 08:11 Afrin LASHELL 1 sprays TID ANIA Administration Multivit/Folic Acid/Iron 1 tab 07/26/17 08:00 07/26/17 08:34 Trinatal Rx 1 PO 1 tab DAILYWM ANIA Administration - Lab Result Lab results reviewed: Yes Fish Bone Diagrams: 07/25/17 19:26 07/25/17 19:26 - Diagnostic Imaging Results Diagnostic Imaging Results: Final report reviewed - Additional Planning Condition/Complexity: Guarded My Orders: My Active Orders 07/26/17 09:23 Nebulizer/MDI Tx. [RC] .Q4prn Resp Teach Nebulizer/MDI [RC] .ONCE 07/26/17 11:00 Levalbuterol [Xopenex] 1.25 mg INH RTQ4H PRN 07/26/17 13:15 Echo Transthoracic Complete [ECHO] Routine Consult/Specialty: Obstetrics Plan Discussed with:: Patient Time Spent: 31-60 minutes Subjective - Subjective Patient Reports: Cough (dry), Chest Pain (Left side on ribs), Shortness of Breath, Other (No fevers or chills.) Nursing Reports: No Complaints Objective Vital Signs: Vital Signs - 24 hr 07/25/17 07/25/17 07/26/17 18:08 21:04 00:04 Temperature 36.6 C 36.6 C 36.5 C Heart Rate Heart Rate [ 85 84 74 Radial] Respiratory 23 20 22 Rate Blood Pressure 101/84 H [Left Brachial artery] Blood Pressure 106/81 H 121/79 [Right Brachial artery] O2 Saturation 98 97 96 07/26/17 07/26/17 07/26/17 04:42 06:50 07:40 Temperature 36.5 C Heart Rate 90 Heart Rate [ 80 77 Radial] Respiratory 16 24 18 Rate Blood Pressure [Left Brachial artery] Blood Pressure 125/75 114/62 [Right Brachial artery] O2 Saturation 97 95 07/26/17 07/26/17 07/26/17 07:54 08:50 09:00 Temperature 36.5 C 98.8 C H Heart Rate Heart Rate [ 77 86 Radial] Respiratory 21 19 Rate Blood Pressure [Left Brachial artery] Blood Pressure 113/61 [Right Brachial artery] O2 Saturation 97 99 07/26/17 07/26/17 11:13 11:20 Temperature 36.7 C Heart Rate 91 Heart Rate [ 86 Radial] Respiratory 22 20 Rate Blood Pressure [Left Brachial artery] Blood Pressure 119/59 L [Right Brachial artery] O2 Saturation 97 Oxygen O2 Source Room air I&O (Last 24 Hrs): Intake and Output Totals x24h 07/24/17 07/25/17 07/26/17 23:59 23:59 23:59 Intake Total 720 1657.496 Output Total 300 950 Balance 420 707.496 General: Alert, Oriented x3, Cooperative, Mild distress (Short of breath. Appears unwell) HEENT: Atraumatic, PERRLA, EOMI, Mucous membr. moist/pink Neck: Supple, No JVD, No thyromegaly, +2 carotid pulse wo bruit, No LAD Lymphatic: no adenopathy Neuro: Alert, Non Focal, CN 2-12 Grossly Intact, Oriented Times 3 Cardiovascular: Regular rate, Normal S1, Normal S2, No murmurs Respiratory: Chest non-tender, Wheezes (Scattered), Rales (Bases) Abdomen: Normal bowel sounds, Soft, No tenderness, No hepatospenomegaly, Other ( Distended) Extremities: No clubbing, No cyanosis, No edema, Normal pulses Skin: No rashes, No breakdown - Results Results: Laboratory Results WBC 10.8 x10^3/uL (4.8-10.8) 07/25/17 19:26 RBC 4.06 10^6/uL (4.20-5.40) L 07/25/17 19:26 Hgb 11.9 g/dL (12.0-16.0) L 07/25/17 19:26 Hct 35.9 % (37.0-47.0) L 07/25/17 19:26 MCV 88.4 fL (81.0-99.0) 07/25/17 19:26 MCH 29.3 pg (27.0-31.0) 07/25/17 19:26 MCHC 33.2 g/dL (32.0-36.0) 07/25/17 19: RDW 13.4 % (12.0-15.0) 07/25/17 19: Plt Count 302 10^3/uL (130-450) 07/25/17 19: MPV 8.6 fL (7.9-10.8) 07/25/17 19: Neut # 6.8 10^3/uL (1.5-6.6) H 07/25/17: Lymph # 2.9 10^3/uL (1.5-3.5) 07/25/17 19: [place] # 0.8 10^3/uL (0.0-1.0) 07/25/17: Eos # 0.3 10^3/uL (0.0-0.7) 07/25/17 19: Baso # 0.0 10^3/uL (0.0-0.1) 07/25/17: Absolute Nucleated RBC 0.00 x10^3/uL 07/25/17 19: Nucleated RBC % 0.0 /100WBC 07/25/17 19: Sodium 136 mmol/L (135-145) 07/25/17 19: Potassium 3.7 mmol/L (3.5-5.0) 07/25/17 19: Chloride 102 mmol/L (101-111) 07/25/17 19: Carbon Dioxide 25 mmol/L (21-32) 07/25/17 19: Anion Gap 9.0 (6-13) 07/25/17 19: BUN 6 mg/dL (6-20) 07/25/17 19: Creatinine 0.5 mg/dL (0.4-1.0) 07/25/17 19:26 Estimated GFR (MDRD) 147 (>89) 07/25/17 19: Glucose 109 mg/dL (70-100) H 07/25/17 19: Calcium 8.5 mg/dL (8.5-10.3) 07/25/17 19: Total Bilirubin 0.2 mg/dL (0.2-1.0) 07/25/17 19: AST 20 IU/L (10-42) 07/25/17 19: ALT 15 IU/L (10-60) 07/25/17 19:26 Alkaline Phosphatase 90 IU/L (42-121) 07/25/17 19:26 B-Natriuretic Peptide 20 pg/mL (5-100) 07/25/17 19:26 Total Protein 6.5 g/dL (6.7-8.2) L 07/25/17 19:26 Albumin 3.0 g/dL (3.2-5.5) L 07/25/17 19:26 Globulin 3.5 g/dL (2.1-4.2) 07/25/17 19:26 Albumin/Globulin Ratio 0.9 (1.0-2.2) L 07/25/17 19:26 - Procedures Procedures: Procedures LOW CERVICAL (06/26/14) MEDICAL INDUCTION LABOR (06/26/14)
[2017-07-26] MEDS ORDERED: AZITHROMYCIN INJ 500 MG in SODIUM CHLORIDE 0.9% 250 ML IV SCH (19:00)
[2017-07-26] MEDS ORDERED: PROMETHAZINE 25 MG/1 ML VIAL IM PRN (19:16)
[2017-07-27] MEDS: LEVALBUTEROL 1.25 MG/3 ML NEB INH PRN ×2 (00:02→06:10)
[2017-07-27] MEDS: OXYMETAZOLINE NASAL SPRAY NAS SCH ×2 (05:55→12:14)
[2017-07-27] MEDS: guaiFENesin 600 MG TABLET PO SCH (05:55)
[2017-07-27] MEDS: ACETAMINOPHEN/CODEINE 300 MG/30 MG TABLET PO PRN ×2 (06:00→10:24)
[2017-07-27] MEDS: guaiFENesin/DEXTROMETHORPHAN 10 ML UDC PO PRN ×2 (06:01→10:23)
[2017-07-27] MEDS: LEVOTHYROXINE 125 MCG TABLET PO SCH (10:24)
[2017-07-27] MEDS: PRENATAL VITAMIN TABLET PO SCH (10:24)
[2017-07-27 13:24] VITALS: BP 107/67
--- NOTE | 2017-07-27 15:42 | PROVIDER PROGRESS NOTE ---
Subjective - Prog Note Date Prog Note Date: 07/27/17 Prog Note Time: 15:40 - Subjective Pt reports feeling: Improved (Pt notes marked improvement. chest pain resolved. cough resolving. pain with cough 2/10. Good FM.) Objective - Vital Signs/Intake & Output Reviewed Vital Signs: Yes Vital Signs: Vital Signs x48h Temp Pulse Resp BP Pulse Ox 07/27/17 13:00 36.8 C 88 18 107/67 99 07/27/17 08:27 36.6 C 87 17 105/65 98 Intake & Output: Intake & Output 07/24/17 07/25/17 07/26/17 07/27/17 23:59 23:59 23:59 23:59 Intake Total 720 4007.496 500 Output Total 300 2800 1000 Balance 420 1207.496 -500 - Objective General Appearance: positive: No acute distress, Alert (Smiling) Respiratory: positive: Chest non-tender, No respiratory distress, Wheezes Cardiovascular: positive: Regular rate & rhythm, No murmur Abdomen: positive: Non-tender, No organomegaly, Nml bowel sounds, Mass (uterus is not tender) Back: positive: Nml inspection. negative: CVA tenderness (R), CVA tenderness (L ) Extremities: negative: Calf tenderness Neurologic/Psychiatric: positive: Oriented x3, Motor nml - Lab Results Fish Bones: 07/25/17 19:26 07/25/17 19:26 - Diagnostic Imaging Diagnostic Imaging Results: positive: Final report reviewed Assessment/Plan - Problem List (1) Bronchitis Impression: Responded to antibiotics and med nebs. Plane to discharge to home now. Discharge meds Azithromycin 250 mg daily for 5 more days Proventil inhaler Tylenol #3 #10. RTC tuesday Pt wants to have her Tubes tided at time of C/S
--- NOTE | 2017-07-27 15:54 | Discharge Plan ---
Discharge Plan Disposition: 01 Home, Self Care Condition: Good Diet: Regular Activity Restrictions: No Restrictions Shower Restrictions: No Driving Restrictions: No Weight Bearing: Full Weight Instruction Topics: Bronchitis Acute Dc, Nebulizer Use, ED Upper Resp Infec Abx Tx No Smoking: If you smoke, Please STOP! Call for help. Follow-up with: Isaiah Fontana MD [Provider Admit Priv/Credential] -
--- NOTE | 2017-07-27 17:26 | PROVIDER PROGRESS NOTE ---
Assessment/Plan - Problem List (1) Upper respiratory infection with cough and congestion Assessment/Plan: Patient improved today Continue Afrin, mucinex, robitussin and azithromycin Nebs seemed to help No need for O2 Discharge today on robitussin, azithro x5 days and albuterol inhaler (2) Bronchitis Assessment/Plan: Coughing has improved today CXR negative for pneumonia Discharge on above meds (3) Rib pain Assessment/Plan: Patient has rib pain on the left side secondary to coughing No fracture seen on CXR Improved Not requiring oxycodone Will take tylenol at home (4) Reactive airway disease Qualifiers: Asthma severity: mild Asthma persistence: unspecified Qualified Code(s): J45.909 - Unspecified asthma, uncomplicated Assessment/Plan: No history of asthma Appears to have reactive airway disease likely secondary to URI and bronchitis Improved with nebs Discharge home with albuterol inhaler Echo normal (5) Qualifiers: Weeks of gestation: 30 weeks Qualified Code(s): Z3A.30 - 30 weeks gestation of Assessment/Plan: OB is monitoring All meds run through OB before being started - Lab Result Lab results reviewed: Yes Fish Bone Diagrams: 07/25/17 19:26 07/25/17 19:26 - Diagnostic Imaging Results Diagnostic Imaging Results: Final report reviewed - Additional Planning Condition/Complexity: Improved Consult/Specialty: Obstetrics Plan Discussed with:: Patient, Spouse Time Spent: 31-60 minutes Subjective - Subjective Patient Reports: Feeling Better, Resting Comfortably, Cough (Improved), Chest Pain (Much improved), Shortness of Breath (Better) Nursing Reports: No Complaints Objective Vital Signs: Vital Signs - 24 hr 07/26/17 07/26/17 07/26/17 19:38 20:35 23:49 Temperature 36.8 C 36.8 C Heart Rate 83 Heart Rate [ 96 81 Radial] Respiratory 20 17 16 Rate Blood Pressure 115/64 116/70 [Right Brachial artery] O2 Saturation 100 100 07/27/17 07/27/17 07/27/17 00:02 04:00 06:11 Temperature 36.6 C Heart Rate 78 84 Heart Rate [ 90 Radial] Respiratory 18 16 18 Rate Blood Pressure 115/77 [Right Brachial artery] O2 Saturation 100 07/27/17 07/27/17 08:27 13:00 Temperature 36.6 C 36.8 C Heart Rate Heart Rate [ 87 88 Radial] Respiratory 17 18 Rate Blood Pressure 105/65 107/67 [Right Brachial artery] O2 Saturation 98 99 Oxygen O2 Source Room air I&O (Last 24 Hrs): Intake and Output Totals x24h 07/25/1718 07/27/17 23:59 23:59 23:59 Intake Total 720 4007.496 500 Output Total 300 2800 1000 Balance 420 1207.496 -500 General: Alert, Oriented x3, Cooperative, No acute distress HEENT: Atraumatic, PERRLA, EOMI, Mucous membr. moist/pink Neck: Supple, No JVD, No thyromegaly, +2 carotid pulse wo bruit, No LAD Lymphatic: no adenopathy Neuro: Alert, Non Focal, CN 2-12 Grossly Intact, Oriented Times 3 Cardiovascular: Regular rate, Normal S1, Normal S2, No murmurs Respiratory: Chest non-tender, Wheezes (Mild) Abdomen: Normal bowel sounds, Soft, No tenderness, No hepatospenomegaly, No masses Extremities: No clubbing, No cyanosis, No edema, Normal pulses, No tenderness/ swelling Skin: No rashes, No breakdown - Results Results: Laboratory Results WBC 10.8 x10^3/uL (4.8-10.8) 07/25/17 19: RBC 4.06 10^6/uL (4.20-5.40) L 07/25/17 19:26 Hgb 11.9 g/dL (12.0-16.0) L 07/25/17 19:26 Hct 35.9 % (37.0-47.0) L 07/25/17 19: MCV 88.4 fL (81.0-99.0) 07/25/17 19:26 MCH 29.3 pg (27.0-31.0) 07/25/17 19: MCHC 33.2 g/dL (32.0-36.0) 07/25/17 19: RDW 13.4 % (12.0-15.0) 07/25/17 19:26 Plt Count 302 10^3/uL (130-450) 07/25/17 19:26 MPV 8.6 fL (7.9-10.8) 07/25/17 19:26 Neut # 6.8 10^3/uL (1.5-6.6) H 07/25/17 19: Lymph # 2.9 10^3/uL (1.5-3.5) 07/25/17 19: [place] # 0.8 10^3/uL (0.0-1.0) 07/25/17 19: Eos # 0.3 10^3/uL (0.0-0.7) 07/25/17 19: Baso # 0.0 10^3/uL (0.0-0.1) 07/25/17 19: Absolute Nucleated RBC 0.00 x10^3/uL 07/25/17 19: Nucleated RBC % 0.0 /100WBC 07/25/17 19: Sodium 136 mmol/L (135-145) 07/25/17 19: Potassium 3.7 mmol/L (3.5-5.0) 07/25/17 19: Chloride 102 mmol/L (101-111) 07/25/17 19: Carbon Dioxide 25 mmol/L (21-32) 07/25/17 19: Anion Gap 9.0 (6-13) 07/25/17 19:26 BUN 6 mg/dL (6-20) 07/25/17 19:26 Creatinine 0.5 mg/dL (0.4-1.0) 07/25/17 19:26 Estimated GFR (MDRD) 147 (>89) 07/25/17 19: Glucose 109 mg/dL (70-100) H 07/25/17 19: Calcium 8.5 mg/dL (8.5-10.3) 07/25/17 19: Total Bilirubin 0.2 mg/dL (0.2-1.0) 07/25/17 19:26 AST 20 IU/L (10-42) 07/25/17 19: ALT 15 IU/L (10-60) 07/25/17 19:26 Alkaline Phosphatase 90 IU/L (42-121) 07/25/17 19:26 B-Natriuretic Peptide 20 pg/mL (5-100) 07/25/17 19:26 Total Protein 6.5 g/dL (6.7-8.2) L 07/25/17 19:26 Albumin 3.0 g/dL (3.2-5.5) L 07/25/17 19:26 Globulin 3.5 g/dL (2.1-4.2) 07/25/17 19:26 Albumin/Globulin Ratio 0.9 (1.0-2.2) L 07/25/17 19:26 - Procedures Procedures: Procedures LOW CERVICAL (06/26/14) MEDICAL INDUCTION LABOR (06/26/14)
[2017-07-28 18:11] LABS: MYCOPLSMA PNEUMONIAE DNA PCR NOT DETECTED; SOURCE NASOPHARANGEAL
== END 2017-07-27 16:05 | disposition home or self-care (01) ==
LOC: WFO 17:56 → FBP 18:01 → WFO 19:31 → FBP 19:32
PROVIDERS: ADMIT Obstetrics & Gynecology; ATTEND Obstetrics & Gynecology
DX: O99.513 Diseases of the respiratory system complicating pregnancy, third trimester (principal); J40 Bronchitis, not specified as acute or chronic; J06.9 Acute upper respiratory infection, unspecified; R07.81 Pleurodynia; O99.283 Endocrine, nutritional and metabolic diseases complicating pregnancy, third trimester; E89.0 Postprocedural hypothyroidism; O34.219 Maternal care for unspecified type scar from previous cesarean delivery; Z3A.33 33 weeks gestation of pregnancy; Z85.850 Personal history of malignant neoplasm of thyroid; Z88.0 Allergy status to penicillin
CPT/HCPCS: 71046; 80053; 83880; 85025; 87581; 93306; 94640; 96361; 96365; 99213; A9270; G0378; 87275; 87276

== ENCOUNTER 2017-08-08 08:00 | Outpatient (CLI) | payer MEDICAID | END 2017-08-08 08:01 | disposition home or self-care (01) | LOC: LAB.R 08:00 | PROVIDERS: ATTEND Obstetrics & Gynecology | DX: Z36.89 Encounter for other specified antenatal screening (principal); O47.03 False labor before 37 completed weeks of gestation, third trimester | CPT/HCPCS: 82731; 87081; 87797 ==

== ENCOUNTER 2017-08-17 10:29 | Outpatient (CLI) | payer MEDICAID ==
[2017-08-17 10:49] VITALS: BP 116/71
[2017-08-17] MEDS ORDERED: TERBUTALINE 1 MG/ML VIAL SUBQ ONE ×2 (12:31→14:20)
[2017-08-17] MEDS ORDERED: LACTATED RINGERS 1,000 ML IV ONE ×2 (12:40→14:20)
== END 2017-08-17 14:25 | disposition home or self-care (01) ==
LOC: WFO 10:29 → FBP 10:30 → WFO 14:25
PROVIDERS: ATTEND Obstetrics & Gynecology
DX: O34.219 Maternal care for unspecified type scar from previous cesarean delivery (principal); Z3A.36 36 weeks gestation of pregnancy
CPT/HCPCS: 96372; 99214; J7120

== ENCOUNTER 2017-08-19 14:16 | Outpatient (CLI) | payer MEDICAID ==
[2017-08-19 14:27] VITALS: BP 117/76
== END 2017-08-19 15:45 | disposition home or self-care (01) ==
LOC: WFO 14:16 → FBP 14:17 → WFO 15:45
PROVIDERS: ATTEND Obstetrics & Gynecology
DX: O36.8130 Decreased fetal movements, third trimester, not applicable or unspecified (principal); Z3A.36 36 weeks gestation of pregnancy
CPT/HCPCS: 59025

== ENCOUNTER 2017-08-25 10:05 | Outpatient (CLI) | payer MEDICAID ==
[2017-08-25 10:57] LABS: RUPTURE OF MEMBRANES PLUS NEGATIVE (NEGATIVE)
[2017-08-25] MEDS ORDERED: TERBUTALINE 1 MG/ML VIAL SUBQ ONE (11:07)
[2017-08-25 12:01] VITALS: BP 117/72
[2017-08-25 12:28] LABS: THYROID STIMULATING HORMONE 0.08 uIU/mL (0.34-5.60)
[2017-08-25 12:29] LABS: FREE T4 (FREE THYROXINE) 0.84 ng/dL (0.58-1.64)
== END 2017-08-25 12:40 | disposition home or self-care (01) ==
LOC: WFO 10:05 → FBP 10:09 → WFO 12:40
PROVIDERS: ATTEND Obstetrics & Gynecology
DX: Z34.83 Encounter for supervision of other normal pregnancy, third trimester (principal)
CPT/HCPCS: 36415; 84112; 84439; 84443; 84481; 96372; 99213

== ENCOUNTER 2017-09-01 13:48 | Outpatient (CLI) | payer MEDICAID | END 2017-09-01 13:49 | disposition home or self-care (01) | LOC: LAB 13:48 | PROVIDERS: ATTEND Obstetrics & Gynecology | DX: Z01.812 Encounter for preprocedural laboratory examination (principal); O34.219 Maternal care for unspecified type scar from previous cesarean delivery | CPT/HCPCS: 36415; 85025; 86850; 86900; 86901 ==

== ENCOUNTER 2017-09-04 13:23 | Inpatient (IN) | payer MEDICAID ==
[2017-09-04] MEDS ORDERED: TERBUTALINE 1 MG/ML VIAL SUBQ ONE (13:58)
[2017-09-04] MEDS ORDERED: LACTATED RINGERS 1,000 ML IV ONE ×3 (14:15→16:12)
[2017-09-04] MEDS ORDERED: SODIUM CHLORIDE FLUSH 0.9% 10 ML SYRINGE ONE (14:16)
[2017-09-04] MEDS ORDERED: SODIUM CHLORIDE 0.9% IV STA (14:48)
[2017-09-04] MEDS ORDERED: VANCOMYCIN IV STA (14:48)
[2017-09-04] MEDS ORDERED: CITRIC ACID/SODIUM CITRATE 15 ML UDC PO ONE (14:50)
[2017-09-04 14:51] LABS: BASOPHILS # (AUTO) 0.1 10^3/uL (0.0-0.1); BASOPHILS % (AUTO) 0.4 %; EOSINOPHILS # (AUTO) 0.3 10^3/uL (0.0-0.7); EOSINOPHILS % (AUTO) 2.1 %; HGB - HEMOGLOBIN 12.5 g/dL (12.0-16.0); LYMPHOCYTES # (AUTO) 3.5 10^3/uL (1.5-3.5); LYMPHOCYTES % (AUTO) 24.2 %; MEAN CORPUSCULAR HEMOGLOBIN 28.3 pg (27.0-31.0); MEAN CORPUSCULAR HGB CONC 33.5 g/dL (32.0-36.0); MEAN CORPUSCULAR VOLUME 84.6 fL (81.0-99.0); MEAN PLATELET VOLUME 9.2 fL (7.9-10.8); MONOCYTES # (AUTO) 0.6 10^3/uL (0.0-1.0); NEUTROPHILS # (AUTO) 10.2 10^3/uL (1.5-6.6); NEUTROPHILS % (AUTO) 69.3 %; PLT - PLATELET COUNT 328 10^3/uL (130-450); RED BLOOD COUNT 4.42 10^6/uL (4.20-5.40); RED CELL DISTRIBUTION WIDTH 14.5 % (12.0-15.0); WHITE BLOOD COUNT 14.7 x10^3/uL (4.8-10.8)
[2017-09-04] MEDS ORDERED: fentaNYL 100 MCG/2 ML VIAL IVP PRN (14:53)
[2017-09-04] MEDS ORDERED: LACTATED RINGERS 1,000 ML IV SCH (15:00)
[2017-09-04] MEDS ORDERED: METOCLOPRAMIDE 10 MG/2 ML VIAL IVP SCH (15:00)
[2017-09-04] MEDS ORDERED: VANCOMYCIN INJ 1 GM, VANCOMYCIN INJ 250 MG in SODIUM CHLORIDE 0.9% 250 ML IV STA (15:00)
[2017-09-04] MEDS ORDERED: GENTAMICIN 340 MG in SODIUM CHLORIDE 0.9% 100ML 100 ML IV SCH (15:00)
--- NOTE | 2017-09-04 15:12 | PROVIDER PROGRESS NOTE ---
Labor Progress Note - Uterine Monitoring Uterine Monitoring Mode: positive: External toco Contraction Frequency (min/apart): Irregular, >Q3 min Contraction Intensity: positive: Moderate to strong Uterine Resting Tone: positive: Soft - Monitoring Monitor Mode: positive: External ultrasound Heart Rate Baseline: 120-130's Heart Rate Variability: positive: Moderate (6-25 bmp) Accelerations: positive: Present, 15x15 Decelerations: positive: None Strip Review: positive: Category I - Vaginal Exam Dilation (in cm): 1 Effacement (%): 50 Station: -2 - Labor Progress Note Labor Progress Note/Additional Text: 26 yo with at 38w5d IUP Active labor PCN allergy GBS positive Hypothyroid Prior CD x 1 Desired permanent sterilization Will proceed to repeat delivery and bilateral salpingectomy Vancomycin 15 mg/kg and gentamicin 5 mg/kg Anticipate using Prevena wound vac after surgery H&P dictated [id number]
[2017-09-04] MEDS ORDERED: ePHEDrine 50 MG/ML AMP IVP ONE (16:00)
[2017-09-04] MEDS ORDERED: MORPHINE PF 5 MG/10 ML AMP EP ONE (16:00)
[2017-09-04] MEDS ORDERED: OXYTOCIN 10 UNIT/ML VIAL IV ONE (16:00)
[2017-09-04] MEDS ORDERED: OXYTOCIN/SODIUM CHLORIDE 250 ML IV ONE (17:00)
[2017-09-04] MEDS ORDERED: MAGNESIUM HYDROXIDE 2,400 MG/30 ML UDC PO PRN (17:00)
--- NOTE | 2017-09-04 17:19 | OPERATIVE REPORT ---
Operative Report - General Admit Date: 09/04/17 - Other Other Information/Narrative: Date of Operation: 09/04/2017 Surgeon: Niki Lawrence DO FACJOAN [employer] Consultant: SONJA Grimaldo [employer] Machine Computer Operator: Pam Boo CRNA Anesthesia: Spinal Pre-op Dx: 1. 26 yo with a 38w5d IUP 2. Contractions 3. Prior CD x 1 4. Desires permanent sterilization Post-op Dx: 1. 26 yo with a 38w5d IUP 2. Contractions 3. Prior CD x 1 4. Desires permanent sterilization Procedures: 1. Repeat Delivery 2. Bilateral salpingectomy Findings: 1. Viable female infant, Maisey, VTX,with Apgars 7/8, weight pending. 2. Normal uterus, fallopian tubes and ovaries Specimens: 1. Placenta to medical waste 2. Cord blood 3. Bilateral fallopian tubes Drains: 1. Hdz catheter to gravity 2. Prevena wound vacuum EBL: 800 Complications: None OP note dictation: [id number]
[2017-09-04] MEDS: oxyCODONE 5 MG TABLET PO PRN (20:19)
--- NOTE | 2017-09-04 21:19 | HISTORY & PHYSICAL EXAMINATION ---
DATE OF SERVICE: 09/04/2017 Physician: Niki Lawrence DO IDENTIFICATION: This is a 26-year-old G3, P1-1-0-1 with a 38-week and 5-day intrauterine . EDC is 09/13/2017 changed by 11-week ultrasound. HISTORY OF PRESENT ILLNESS: Elsi is a patient of [facility] who presents on 09/04/2017 with complaints of contractions. Elsi has had contractions that are irregular, greater than every 3 minutes, but they are causing her a significant amount of pain. Cervical examination by RN shows that she is 1 cm dilated, 50 percent effaced and -2 station. heart tones are reassuring with a baseline of the 120s to 130s, reactive and category 1. There were no decelerations. Elsi has had consistent care with us since 11 weeks' gestation. She has been scheduled for repeat delivery three days from now. Elsi did have a delivery with her first secondary to nonreassuring heart tones and a placenta abruption. She was scheduled not only for repeat delivery, but also for bilateral salpingectomy for permanent sterilization. Elsi also is noted to be GBS positive and is PENICILLIN ALLERGIC. Sensitivities show resistance to both clindamycin, as well as erythromycin. Elsi also has hypothyroidism and was recently found to be over treated. TSH is 0.08 and free T3 of 5.71. These labs were drawn on 2017. Elsi was therefore decreased from her levothyroxine of 175 mcg to 150 mcg. Elsi otherwise is doing well. She denies any nausea, vomiting, fevers, chills , diarrhea or constipation. PAST MEDICAL HISTORY: 1. Hypothyroidism secondary to Graves disease and thyroid goiter. 2. Thyroid carcinoma. PAST SURGICAL HISTORY: 1. Appendectomy. 2. Broken arm. 3. delivery x1. 4. Thyroidectomy for thyroid carcinoma. ALLERGIES: PENICILLIN. MEDICATIONS: 1. Levothyroxine 150 mcg one tab p.o. daily. 2. vitamins. SOCIAL HISTORY: She denies any tobacco, alcohol or illicit drug use. Elsi is to Scottie. Scottie does have a daughter named Halley from a previous relationship. Elsi's oldest child is Cooper and this is a baby girl with anticipated name of Gertrudis. Elsi would like to have [facility] be her dental scheduling coordinator. She does anticipate to breast-feed. [facility] is her pharmacy of choice and her primary care is at [facility]. Her mother is Bill. Jaguar Treviño MD in [facility] is her special education supervisor. PAST OBSTETRICAL HISTORY: 1. delivery at 22 weeks' gestation. 2. One delivery at term secondary to nonreassuring heart tones with placenta abruption. 3. Elsi does verbalize her desire for permanent sterilization. PAST GYNECOLOGY HISTORY: She denies any sexually transmitted diseases or abnormal Pap smears. FAMILY HISTORY: Significant for depression and cardiac disease. PHYSICAL EXAMINATION: VITAL SIGNS: Temperature is 97.7, heart rate 96, blood pressure 114/79, respiratory rate 20, O2 saturations 98%. GENERAL: Elsi is a well-developed, well-nourished, female, in no apparent distress. She is alert and oriented x3. HEENT: Within normal limits. CARDIOVASCULAR: Rate is regular. No murmurs or rubs. PULMONARY: Lungs are clear to auscultation bilaterally. ABDOMEN: Gravid, nontender. Estimated weight is 7-1/2 pounds. LABORATORY DATA: Reveal her Pap smear was negative, chlamydia and gonorrhea both negative. Blood type O positive, antibody screen negative. HIV is negative. RPR is nonreactive. Rubella was immune. Hepatitis B surface antigen is nonreactive. GBS was positive and again resistant to clindamycin and erythromycin. A 08/25/2017 TSH of 0.08 and free T3 of 5.71. anatomical survey was consistent with dates and within normal limits. Placenta is posterior with 3-vessel umbilical cord. One hour GTT is 136. Labs from today 09/04/2017 show a white count of 14.7, H and H of 12.5 and 37.4 , platelets of 328. ASSESSMENT: 1. A 18-year-old G3, P1-1-0-1 with a 38 and 5/7-week intrauterine . 2. Prior delivery x1. 3. Labor. 4. GBS positive. 5. Hypothyroid. ASSESSMENT AND PLAN: 1. We will admit. 2. We will proceed to a repeat delivery and bilateral tubal sterilization. The patient's sterilization consent was signed on 07/27/2017. 3. We will continue her on levothyroxine 150 mcg one tab p.o. daily. 4. Given Elsi is PENICILLIN ALLERGIC and GBS positive in the face of repeat delivery, we will start her on vancomycin 15 mg/kg IV per pharmacy, as well as gentamicin 5 mg/kg per pharmacy. Will consent Elsi for a repeat delivery and permanent sterilization. TD: 09/04/2017 15:23 MTDD
[2017-09-04] MEDS: CELECOXIB 100 MG CAPSULE PO SCH (21:49)
[2017-09-04] MEDS: SIMETHICONE CHEW 80 MG TABLET PO SCH (21:49)
[2017-09-04] MEDS: DOCUSATE SODIUM 100 MG CAPSULE PO SCH (21:49)
[2017-09-04] MEDS ORDERED: ONDANSETRON 4 MG/2 ML VIAL IVP PRN (22:00)
[2017-09-04] MEDS ORDERED: METOCLOPRAMIDE 10 MG/2 ML VIAL IVP PRN (22:00)
[2017-09-04] MEDS ORDERED: MORPHINE 2 MG/ML CARPUJECT IVP PRN (22:00)
[2017-09-04] MEDS ORDERED: NALBUPHINE 20 MG/ML AMP IVP PRN (22:00)
[2017-09-04] MEDS ORDERED: diphenhydrAMINE INJ 50 MG/ML VIAL IVP PRN (22:00)
[2017-09-04] MEDS ORDERED: NALOXONE 0.4 MG/ML VIAL IVP PRN (22:00)
[2017-09-04] MEDS: SODIUM CHLORIDE FLUSH 0.9% 10 ML SYRINGE IVP PRN (22:07)
[2017-09-04] MEDS: diphenhydrAMINE 25 MG CAPSULE PO PRN (22:52)
[2017-09-05] MEDS: ACETAMINOPHEN 500 MG TABLET PO SCH ×4 (02:40→19:03)
--- NOTE | 2017-09-05 03:48 | OPERATIVE REPORT ---
DATE OF SERVICE: 09/04/2017 SURGEON: Niki Lawrence DO, FACOG LEAD SPRINKLER: Loretta Rocha CNM, [employer] CERTIFIED DRIVER EXAMINER: Pam Boo CRNA ANESTHESIA: Spinal. PREOPERATIVE DIAGNOSES 1. A 26-year-old G3, P1-1-0-1, with 38-5/7-week intrauterine . 2. Contractions. 3. Prior delivery x1. 4. Desires permanent sterilization. POSTOPERATIVE DIAGNOSES 1. A 26-year-old G3, P1-1-0-1, with 38-5/7-week intrauterine . 2. Contractions. 3. Prior delivery x1. 4. Desires permanent sterilization. PROCEDURES 1. Repeat delivery. 2. Bilateral salpingectomy. FINDINGS 1. A viable female infant in vertex presentation named Sol. Apgars were 7 and 8 at one and five minutes, respectively. Weight is currently pending. 2. Normal uterus, fallopian tubes, and ovaries. SPECIMENS 1. Placenta to medical waste. 2. Cord blood. 3. Bilateral fallopian tubes. DRAINS 1. Hdz catheter to gravity. 2. Prevena wound vacuum. ESTIMATED BLOOD LOSS: 800 mL COMPLICATIONS: None. BRIEF HISTORY: The patient is a patient of [facility] who presented with complaints of contractions earlier this afternoon. The patient had been coming in previously for rule out labor. I recommended the patient to undergo a repeat delivery, since she was 38 weeks 5 days. She did have a scheduled repeat delivery in 3 days from now. The patient in addition verbalized her desire for permanent sterilization. Consent forms have been signed since July 2017. I discussed with the patient the risks, benefits, alternatives, indications, and expectations of a repeat delivery with a bilateral salpingectomy. Included in our discussion were the risks of hemorrhage, infection, and damage to surrounding organs which may include but are not limited to inadvertent laceration, cauterization, or ligation of adjacent intestines, bladder, and ureters. Furthermore, with respect to tubal sterilization, the patient understands that there are different forms of contraception available to her, including control pills, the patch, and the IUD. Her may opt to have a vasectomy. There is also an intrinsic tubal failure rate, so should the patient feel that she is after surgery,she will call me immediately. The most common complication is regret. After all of the patient's questions were answered to her satisfaction, she verbalized a desire to proceed with both delivery as well as a bilateral tubal sterilization. Consents were signed. OPERATION IN DETAIL: The patient was identified, consented, and taken to the operating room, where IV access was already in place. She was then given satisfactory spinal anesthesia as per Pam Boo. Sequential compression devices were placed on the lower extremities and turned on. A Hdz catheter was placed in her bladder. The patient was then prepped and draped in normal sterile fashion in dorsal supine position with leftward tilt. Vancomycin at 15 mg/kg was currently infusing. The patient also had gentamicin 5 mg/kg ready for her after infusion of the vancomycin. The patient was noted to be PENICILLIN ALLERGIC as well as GBS positive. A timeout was performed which correctly identified the patient, site of the procedure, and the procedures themselves. Repeat skin testing revealed that the patient had satisfactory pain control for surgery. The patient's Pfannenstiel skin incision was first excised sharply. The incision was then carried to the underlying layer of fascia with electrocautery. The fascia was then nicked in the midline and extended laterally. Rectus muscles were then dissected off the fascia. The rectus muscles were identified in the midline and then entered sharply. Peritoneum was entered bluntly. A bladder flap was created by dissecting off the vesicouterine peritoneum. In a transverse fashion, an incision was made in the lower uterus. Amniotomy revealed clear fluid. With the help of fundal pressure, the 's head delivered easily and without difficulty. Nose and mouth were suctioned with a bulb syringe. Again, with the help of fundal pressure, the was delivered easily through the hysterotomy. Nuchal cord was not noted. The umbilical cord was doubly clamped and cut, and the was then handed off to the waiting OB nurses. Cord blood was obtained and sent. The uterus was then internally massaged and the placenta delivered manually. The uterus was delivered out of the abdomen and cleared of all clots and debris. The hysterotomy was closed with two stitches of 0 Vicryl, first in a running locked fashion and then in an imbricating fashion using the Lembert stitch. Attention was then turned towards the bilateral salpingectomy. The right fallopian tube was identified and followed to the fimbriated end. With the LigaSure, the right fallopian tube was then excised. In a similar fashion, the left fallopian tube was identified and then similarly excised using the LigaSure. Hemostasis was noted bilaterally. Reinspection of the hysterotomy revealed some small bleeding in the left corner. 2-0 Vicryl in a running fashion was used to obtain hemostasis. The uterus was then returned to the abdomen, and the abdomen was then copiously irrigated. Hemostasis was noted. The peritoneum was then closed with 2-0 Vicryl in a running fashion. The same stitch was used to reapproximate the rectus muscles. Fascia was then closed with 0 Vicryl in a running fashion. Paul's fascia was then reapproximated using 2-0 Vicryl in a running fashion. Skin was then finally closed with 4-0 Monocryl in subcuticular fashion. A Prevena wound VAC was finally placed on top of the incision and turned on. The patient tolerated the procedure well and was taken back to the recovery room in stable and awake condition. She will be given routine care, including tcqbkq-[id number] Celebrex, 1 gram of Tylenol, and then p.r.n. oxycodone. All sponge, lap, and needle counts were correct x2 as per nurse's report. TD: 09/04/2017 17:32 OSVALDO
[2017-09-05] MEDS: LEVOTHYROXINE 75 MCG TABLET PO SCH (06:50)
[2017-09-05] MEDS: SIMETHICONE CHEW 80 MG TABLET PO SCH ×3 (07:52→17:38)
[2017-09-05] MEDS: DOCUSATE SODIUM 100 MG CAPSULE PO SCH ×2 (07:52→20:40)
[2017-09-05] MEDS: oxyCODONE 5 MG TABLET PO PRN ×2 (07:52→12:02)
[2017-09-05] MEDS: CELECOXIB 100 MG CAPSULE PO SCH ×2 (09:09→20:39)
--- NOTE | 2017-09-05 13:48 | PROVIDER PROGRESS NOTE ---
Subjective - Prog Note Date Prog Note Date: 09/05/17 Prog Note Time: 13:46 - Subjective Pt reports feeling: Worse Subjective: Elsi sitting on a stool beside the bed. Step daughter Halley sitting in the bed and Scottie changing the baby in the bed. Elsi states that she was doing well until 2 hours ago when she started having severe pain in the LLQ. No radiation, sharp pain. Denies problems with ambulation or urination. Lochia decreasing. Pain not improved despite Celebrex, Tylenol and oxycodone. Also Elsi notes itching on her entire body since surgery. Objective - Vital Signs/Intake & Output Reviewed Vital Signs: Yes Vital Signs: Vital Signs x48h Temp Pulse Resp BP Pulse Ox 09/05/17 12:02 98.4 F 78 18 123/59 L 97 09/05/17 09:49 83 17 99 09/05/17 08:30 87 17 99 09/05/17 07:45 98.2 F 82 17 101/65 99 Intake & Output: Intake & Output 09/02/17 09/03/17 09/04/17 09/05/17 23:59 23:59 23:59 23:59 Intake Total 960 941 Output Total 350 1700 Balance 610 -759 - Objective General Appearance: positive: No acute distress Abdomen: positive: Non-tender (Prevena wound vac intact and working well. No ecchymosis or skin ulcerations. No edema. No peritoneal signs. Abdominal distention on the left abdomen.) Skin: positive: Color nml, No rash Extremities: positive: Non-tender Neurologic/Psychiatric: positive: Oriented x3 (Anxious presentation) - Lab Results Fish Bones: 09/04/17 14:20 Other Labs: Lab Results x24hrs 09/04/17 Range/Units 14:20 WBC 14.7 H (4.8-10.8) x10^3/uL RBC 4.42 (4.20-5.40) 10^6/uL Hgb 12.5 (12.0-16.0) g/dL Hct 37.4 (37.0-47.0) % MCV 84.6 (81.0-99.0) fL MCH 28.3 (27.0-31.0) pg MCHC 33.5 (32.0-36.0) g/dL RDW 14.5 (12.0-15.0) % Plt Count 328 (130-450) 10^3/uL MPV 9.2 (7.9-10.8) fL Neut # 10.2 H (1.5-6.6) 10^3/uL Lymph # 3.5 (1.5-3.5) 10^3/uL [place] # 0.6 (0.0-1.0) 10^3/uL Eos # 0.3 (0.0-0.7) 10^3/uL Baso # 0.1 (0.0-0.1) 10^3/uL Absolute Nucleated RBC 0.00 x10^3/uL Nucleated RBC % 0.0 /100WBC Assessment/Plan - Problem List (1) delivery, delivered, current hospitalization Impression: 26 yo S/p repeat CD and BS 09/04/2017, POD #1 for contractions. Pain LLQ, likely due to mild ileus and +/- anxiety Pruritis from spinal Will maximize NSAIDS and narcotics Add ativan, Nubain
[2017-09-05] MEDS ORDERED: NALBUPHINE 10 MG/ML AMP IVP PRN (13:55)
[2017-09-05] MEDS: diphenhydrAMINE 25 MG CAPSULE PO PRN (14:03)
[2017-09-05] MEDS: HYDROmorphone 2 MG TABLET PO PRN ×2 (14:11→20:39)
[2017-09-05] MEDS: SODIUM CHLORIDE FLUSH 0.9% 10 ML SYRINGE IVP PRN (14:11)
[2017-09-05] MEDS: LORazepam 0.5 MG TABLET PO PRN ×2 (14:12→18:04)
--- NOTE | 2017-09-05 20:19 | DISCHARGE SUMMARY ---
Physician: Niki Lawrence DO DATE OF ADMISSION: 09/04/2017 DATE OF DISCHARGE: 09/06/2017 DIAGNOSES ON ADMISSION 1. A 26-year-old G3, P1-1-0-1 with 38-5/7-week intrauterine . 2. delivery x1. 3. Hypothyroidism. 4. Contractions. 5. Group B streptococcus positive. 6. Desires permanent sterilization. DIAGNOSES ON DISCHARGE 1. A 26-year-old G3, P2-1-0-2, status post repeat delivery and bilateral salpingectomy on 09/04/2017. 2. Hypothyroidism. 3. Normal recovery. BRIEF HISTORY: The patient is a patient of [facility] who presented on 09/04/2017 with complaints of contractions. The patient has presented to the hospital multiple times previously for complaints of contractions. The patient was scheduled for repeat delivery on 09/07/2017. The patient also was scheduled for bilateral salpingectomy secondary to desire for permanent sterilization. Given that the patient was full term and ugo, I decided to proceed with delivery in order to prevent an abruption of her uterine scar. The patient underwent an unremarkable repeat delivery on 09/04/2017 and delivered a viable female infant named Sol. Apgars were 7 and 8 at one and five minutes, respectively, and she weighed 6 pounds 5.7 ounces or 2884 grams. EBL was 800 mL and no complications. The patient's postoperative course was remarkable for pain in the left lower quadrant. This was resolved after changing her medications to Dilaudid. A Prevena wound VAC was used. The patient is ambulating and tolerating a regular diet. She is urinating without difficulty, and her pain is controlled with oral medications. The patient will be discharged home on postoperative day #2, 09/06/2017. The patient will be given instructions to take yoym-oce-cwybnlv Tylenol and ibuprofen for her primary form of pain control. A prescription for Dilaudid will be available to the patient should she need any breakthrough pain coverage. The patient is to see me this week for removal of her Prevena wound VAC and then in 2 weeks for a routine incision check. The patient is to call should she have any worsening fevers, chills, abdominal pain, or vaginal bleeding. Will need to follow up on decreased levothyroxine 150 mcg (from 175 mcg). TD: 09/05/2017 14:10 MTDDrake
[2017-09-06] MEDS: HYDROmorphone 2 MG TABLET PO PRN (02:43)
[2017-09-06] MEDS: ACETAMINOPHEN 500 MG TABLET PO SCH ×2 (02:43→10:42)
[2017-09-06] MEDS: LEVOTHYROXINE 75 MCG TABLET PO SCH (06:10)
--- NOTE | 2017-09-06 08:48 | PROVIDER PROGRESS NOTE ---
Subjective - Prog Note Date Prog Note Date: 09/06/17 Prog Note Time: 08:46 - Subjective Pt reports feeling: Improved Subjective: Elsi on the phone all AM. Still on the phone when in the bathroom. Ambulating and tolerating a regular diet. Decreasing lochia. Urinating without difficulty. Pain better controlled with dilaudid so was able to sleep last PM. States baby is having a difficult time latching. Desires to go home today. Objective - Vital Signs/Intake & Output Reviewed Vital Signs: Yes Vital Signs: Vital Signs x48h Temp Pulse Resp BP BP Pulse Ox 09/06/17 08:24 97.5 F L 75 16 113/77 99 09/06/17 05:00 98.1 F 79 16 119/66 99 09/06/17 00:59 97.5 F L 78 18 129/61 Intake & Output: Intake & Output 09/03/17 09/04/17 09/05/17 09/06/17 23:59 23:59 23:59 23:59 Intake Total 960 3441 1240 Output Total 350 3100 Balance 921 790 9610 - Objective General Appearance: positive: No acute distress, Alert Abdomen: positive: Non-tender (Soft, benign, Prevena wound vac in place and working well. Nontender.) Skin: positive: Color nml Neurologic/Psychiatric: positive: Oriented x3 - Lab Results Fish Bones: 09/04/17 14:20 Assessment/Plan - Problem List (1) delivery, delivered, current hospitalization Impression: 26 yo S/p repeat CD and BS 09/04/2017 Normal recovery Discharge to home Recommend patient to take OTC Tylenol and Motrin Rx dilaudid for PRN breakthrough pain Call for worsening fevers, chills, abdominal pain or vaginal bleeding Follow up in office Tuesday for removal of Prevena wound vac Discharge Plan Disposition: Home, Self Care Condition: Good Diet: Regular Activity Restrictions: Activity as Tolerated (No lifting greater than 10 pounds) Shower Restrictions: No Driving Restrictions: Yes (No driving) Weight Bearing: Full Weight No Smoking: If you smoke, Please STOP! Call for help.
[2017-09-06] MEDS: CELECOXIB 100 MG CAPSULE PO SCH (08:58)
[2017-09-06] MEDS: DOCUSATE SODIUM 100 MG CAPSULE PO SCH (08:58)
[2017-09-06] MEDS: SIMETHICONE CHEW 80 MG TABLET PO SCH (08:58)
[2017-09-06 12:48] VITALS: BP 122/64
== END 2017-09-06 16:30 | disposition home or self-care (01) | DRG 766 ==
LOC: FBP 13:23 → WFO 13:23 → FBP 14:09
PROVIDERS: ADMIT Obstetrics & Gynecology; ATTEND Obstetrics & Gynecology
PROC: 0UT70ZZ Resection of Bilateral Fallopian Tubes, Open Approach (ICD-10-PCS; 2017-09-04)
PROC: 10D00Z1 Extraction of Products of Conception, Low, Open Approach (ICD-10-PCS; principal; 2017-09-04 15:00)
DX: O34.219 Maternal care for unspecified type scar from previous cesarean delivery (principal); N85.8 Other specified noninflammatory disorders of uterus; O99.284 Endocrine, nutritional and metabolic diseases complicating childbirth; E89.0 Postprocedural hypothyroidism; O99.824 Streptococcus B carrier state complicating childbirth; T88.59XA Other complications of anesthesia, initial encounter; O99.73 Diseases of the skin and subcutaneous tissue complicating the puerperium; Y84.8 Other medical procedures as the cause of abnormal reaction of the patient, or of later complication, without mention of misadventure at the time of the procedure; Y92.234 Operating room of hospital as the place of occurrence of the external cause; Z30.2 Encounter for sterilization; Z3A.38 38 weeks gestation of pregnancy; Z37.0 Single live birth; Z85.850 Personal history of malignant neoplasm of thyroid
CPT/HCPCS: 36415; 82803; 85025; 99213; 99406

== ENCOUNTER 2017-12-19 16:26 | Outpatient (CLI) | payer MEDICAID | END 2017-12-19 16:27 | disposition critical access hospital (66) | LOC: EMS 16:26 | PROVIDERS: ATTEND Surgery | DX: R51 Headache (principal); R11.2 Nausea with vomiting, unspecified | CPT/HCPCS: A0425; A0429 ==

== ENCOUNTER 2017-12-19 16:49 | Emergency (ER) | payer MEDICAID ==
[2017-12-19] MEDS ORDERED: MORPHINE 2 MG/ML CARPUJECT IVP STA (18:10)
[2017-12-19] MEDS ORDERED: KETOROLAC 60 MG/2 ML VIAL IVP STA (18:10)
[2017-12-19] MEDS ORDERED: SODIUM CHLORIDE 0.9% 1,000 ML IV ONE (18:10)
--- NOTE | 2017-12-19 18:12 | ED Physician Documentation ---
PD HPI HEADACHE - Stated complaint Stated Complaint: HEADACHE - Chief complaint Chief Complaint: Neuro - History obtained from History obtained from: Patient, Family - History of Present Illness Timing - onset: Other (27-year-old woman with history of cluster headaches and migraines presents with 4 days of a frontal headache that is severe and worse than any headache she is ever had. It waxes and wanes but never completely goes away. It is worse when she is upright and associated with frontal sinus pain and green sinus drainage but no fevers. She has also had muffled hearing and light sensitivity. She has tried a variety of aojg-tvc-yrmoftf medications without any relief.) Review of Systems Constitutional: denies: Fever, Chills Ears: reports: Loss of hearing, Ear pain. 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 : None HEENT: None Psych: None Musculoskeletal: None Derm: None - Past Surgical History Past Surgical History: Yes General: Appendectomy /TANK CAR REPAIRER: section HEENT: Tonsil/Adenoidectomy - Present Medications Home Medications: Ambulatory Orders Medication Instructions Recorded Confirmed Levothyroxine Sodium 175 mcg PO QDAC 07/26/17 07/26/17 Azithromycin [Zithromax] 250 mg PO DAILY #6 tablet 12/19/17 Guaifenesin/Pseudoephedrne HCl 1 each PO BID PRN #20 tab.er.12h 12/19/17 [Mucinex D ER 1,200-120 mg Tab] Hydrocodone/Acetaminophen 1 - 2 each PO Q6H PRN #14 tablet 12/19/17 [Hydrocodon-Acetaminophen 5-325] Mometasone Furoate [Nasonex] 17 gm NS BID #1 spray.pump 12/19/17 predniSONE [Deltasone] 20 mg PO [id number] #21 tab 12/19/17 - Allergies Allergies/Adverse Reactions: Allergies Allergy/AdvReac Type Severity Reaction Status Date / Time Penicillins Allergy Intermediate Edema Verified 09/05/12 09:12 - Social History Does the pt smoke?: No Smoking Status: Current every day smoker Does the pt drink ETOH?: No Does the pt have substance abuse?: Yes - Immunizations Immunizations are current?: Yes - POLST Patient has POLST: No PD ED PE NORMAL - Vitals Vital signs reviewed: Yes - General General: Alert and oriented X 3, No acute distress (Except for photophobia) - HEENT HEENT: PERRL, EOMI, Ears normal, Pharynx benign, Other (Frontal sinus tenderness bilaterally) - Neck Neck: Supple, no meningeal sign, No bony TTP - Cardiac Cardiac: RRR, No murmur - Neuro Neuro: Alert and oriented X 3, corset fitter 2-12 intact Eye Opening: Spontaneous Motor: Obeys Commands Verbal: Oriented GCS Score: 15 - Psych Psych: Normal mood, Normal affect Results - Vitals Vitals: Vital Signs - 24 hr 12/19/17 17:03 Temperature 37.0 C Heart Rate 75 Respiratory 16 Rate Blood Pressure 126/88 H O2 Saturation 100 Oxygen O2 Source Room air - Rads (name of study) CT Head Radiology: EMP read contemporaneously (Brain nl, pansinusitis) PD MEDICAL DECISION MAKING - ED course ED course: 27-year-old woman with headache history presents with gradual onset worst headache of life. Clinically consistent with sinusitis. No clinical evidence of meningitis. CT as shown, proving the diagnosis and no other acute findings. Feeling much better after medications here. Given the "severe" symptoms she does fit IDSA criteria for antibiotic treatment and sinusitis. - Sepsis Event Vital Signs: Vital Signs - 24 hr 12/19/17 17:03 Temperature 37.0 C Heart Rate 75 Respiratory 16 Rate Blood Pressure 126/88 H O2 Saturation 100 Oxygen O2 Source Room air Departure - Departure Disposition: 01 Home, Self Care Clinical Impression: Sinusitis Qualifiers: Sinusitis location: frontal Chronicity: acute Recurrence: recurrent Qualified Code(s): J01.11 - Acute recurrent frontal sinusitis Condition: Good Record reviewed to determine appropriate education?: Yes Instructions: ED Headache Sinus Prescriptions: Azithromycin [Zithromax] 250 mg PO DAILY #6 tablet Guaifenesin/Pseudoephedrne HCl [Mucinex D ER 1,200-120 mg Tab] 1 each PO BID PRN #20 tab.er.12h PRN Reason: congestion Hydrocodone/Acetaminophen [Hydrocodon-Acetaminophen 5-325] 1 - 2 each PO Q6H PRN #14 tablet PRN Reason: pain Mometasone Furoate [Nasonex] 17 gm NS BID #1 spray.pump predniSONE [Deltasone] 20 mg PO [id number] #21 tab Comments: Call your doctor to arrange a follow-up appointment, make the next available appointment. In the interim, return anytime if worse or if new symptoms develop. Do not drink or drive while taking narcotic pain medication. Note that many narcotic pain relievers also contain Tylenol/acetaminophen. Please ensure that your total dose of acetaminophen from all sources does not exceed 3 g (3000 mg) per day. You may get constipated while on this medication. Take a stool softener such as Colace twice a day while you are on it. Also add an qnjg-bdy-wqmdxem laxative such as senna or MiraLAX on any day that you do not have a bowel movement. If you received a narcotic pain medication or sedative while in the emergency department, do not drive for the next 24 hours. Your blood pressure was elevated today on check into the emergency department. This does not mean that you have hypertension, it is a common phenomenon to come to the emergency department and have elevated blood pressure. I recommend that you see your primary care physician within the week to have it rechecked when you are feeling better.
--- NOTE | 2017-12-19 18:51 | CT Report ---
Reason: headache Procedure Date: 12/19/2017 Accession Number: [id number] / [id number] Procedure: CT - Head W/O CPT Code: FULL RESULT: EXAM: CT HEAD EXAM DATE: 12/19/2017 06:32 PM. CLINICAL HISTORY: Headache and photophobia for 4 days. COMPARISON: Head without and with 12/22/2015. TECHNIQUE: Multiaxial CT images were obtained from the foramen magnum to the vertex. Reformats: Coronal. IV contrast: None. In accordance with CT protocol optimization, one or more of the following dose reduction techniques were utilized for this exam: automated exposure control, adjustment of mA and/or KV based on patient size, or use of iterative reconstructive technique. FINDINGS: Parenchyma: No intraparenchymal hemorrhage. No evidence of mass, midline shift, or CT findings of infarction. Moore-white differentiation is distinct. Extraaxial Spaces: Normal for age. No subdural or epidural collections identified. Ventricles: Normal in size and position. Sinuses and Orbits: Chronic marked right maxillary sinusitis. Not able to evaluate right nasal cavity. Increasing fluid and mucosal thickening throughout the rest of the paranasal sinuses. Hypoplastic frontal sinuses. Middle ears and mastoid air cells are clear. Bones: No evidence of fracture or calvarial defect. Other: None. IMPRESSION: 1. Moderate to marked pansinusitis. 2. No intracranial abnormality nor bleed. RADIA
[2017-12-19 20:02] VITALS: BP 134/90
== END 2017-12-19 20:03 | disposition home or self-care (01) ==
LOC: EDUNIT# → ED 16:49
DX: J01.11 Acute recurrent frontal sinusitis (principal); R03.0 Elevated blood-pressure reading, without diagnosis of hypertension; F17.200 Nicotine dependence, unspecified, uncomplicated
CPT/HCPCS: 70450; 96361; 96374; 96375; 99283; 99284

== ENCOUNTER 2018-03-24 20:59 | Outpatient (CLI) | payer MEDICAID ==
--- NOTE | 2018-03-27 09:06 | Ultrasound Report ---
Reason: THYROID CANCER Procedure Date: 03/24/2018 Accession Number: [id number] / [id number] Procedure: US - Head or Neck Soft Tissue CPT Code: FULL RESULT: EXAM: THYROID ULTRASOUND EXAM DATE: 03/24/2018 09:28 PM. CLINICAL HISTORY: Thyroid cancer. COMPARISON: 02/21/2015. TECHNIQUE: Real time sonographic imaging of the thyroid was performed by the grey stock recorder. Multiple civil rights representative static images were saved for review. FINDINGS: THYROID GLAND: Right Lobe: Stable appearance of the right thyroid lobe bed, status post thyroidectomy. Right Lobe Nodules: None. Left Lobe: Stable appearance of the left thyroid lobe bed, status post thyroidectomy. Left Lobe Nodules: None. Isthmus: Stable appearance of the isthmus region status post thyroidectomy. Isthmic Nodules: None. LYMPH NODES: Stable, mildly prominent, symmetric low cervical/jugulodigastric nodes unchanged in size and morphology. OTHER: None. IMPRESSION: Stable post thyroidectomy changes with long-term stable mildly prominent jugulodigastric lymph nodes. No adenopathy or new mass appreciated. Management recommendations are based on 2015 [place] [employer] Management Guidelines for Adult Patients with Thyroid Nodules and Differentiated Thyroid Cancer. RADIA
== END 2018-03-24 21:00 | disposition home or self-care (01) ==
LOC: DI 20:59
PROVIDERS: ATTEND Internal Medicine Endocrinology, Diabetes & Metabolism
DX: C73 Malignant neoplasm of thyroid gland (principal)
CPT/HCPCS: 76536

== ENCOUNTER 2022-06-28 00:43 | Outpatient (CLI) | payer MEDICAID | END 2022-06-28 00:44 | disposition critical access hospital (66) | LOC: EMS 00:43 | DX: R51.9 Headache, unspecified (principal); R10.11 Right upper quadrant pain; R10.12 Left upper quadrant pain; R25.2 Cramp and spasm; R11.0 Nausea; R42 Dizziness and giddiness; R50.9 Fever, unspecified | CPT/HCPCS: A0425; A0427; A0999 ==

== ENCOUNTER 2022-06-28 00:58 | Emergency (ER) | payer MEDICAID ==
--- NOTE | 2022-06-28 02:08 | ED Physician Documentation ---
History of Present Illness - Stated complaint Stated Complaint: FEVER, ABD CRAMPS, HEADACHE - Chief complaint Chief Complaint: General - History obtained from History obtained from: Patient, EMS - Additonal information Additional information: Brought to ED by EMS. HPI is from patient with some contribution from EMS. Patient was evaluated a week ago (06/21) in ED for headache. She was discharged with diagnosis of tension headache and paracervical spasms. She was prescribed flexeril which has not been providing relief of symptoms. She says she has ongoing , generalized headache. The headache began approximately 8 days before the ED visit (thus approximately 2 weeks [facility] 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 She has not had fevers at home. EMS says they obtained temporal temperature of 102 TUBE AND ROD STRAIGHTENER but without any intervention, patient is afebrile in ED on arrival. Patient also asks that I look at what she says is a large, blue/purple area on her right buttock that she noticed earlier today. Does not recall any fall/injury. Review of Systems Constitutional: reports: Chills, Myalgias, Sweats Eyes: denies: Loss of vision, Decreased vision, Photophobia Ears: denies: Ear pain, Tinnitus/ringing Nose: denies: Congestion, Sinus pressure / pain Throat: reports: Sore throat Cardiac: denies: Chest pain / pressure, Pedal edema Respiratory: reports: Dyspnea, Cough GI: reports: Abdominal Pain, Nausea, Vomiting. denies: Abdominal Swelling, Hematemesis, Bloody / black stool : denies: Dysuria, Frequency, Now EGA Musculoskeletal: reports: Neck pain, Back pain. denies: Joint pain Neurologic: reports: Generalized weakness, Headache. 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 : None HEENT: None Psych: None Musculoskeletal: None Derm: None - Past Surgical History Past Surgical History: Yes General: Appendectomy /LIGHT OIL OPERATOR: section HEENT: Tonsil/Adenoidectomy - Present Medications Home Medications: Ambulatory Orders Medication Instructions Recorded Confirmed Levothyroxine Sodium 175 mcg PO QDAC 07/26/17 06/28/22 Mometasone Furoate [Nasonex] 17 gm NS BID #1 spray.pump 12/19/17 06/28/22 Ondansetron Odt [Zofran] 4 mg TL Q6H PRN #14 tablet 06/28/22 Oxycodone HCl/Acetaminophen 1 - 2 each PO Q6H PRN #14 tablet 06/28/22 [Percocet 5-325 mg Tablet] - Allergies Allergies/Adverse Reactions: Allergies Allergy/AdvReac Type Severity Reaction Status Date / Time Penicillins Allergy Intermediate Edema Verified 06/28/22 01:17 - Social History Does the pt smoke?: No Smoking Status: Current every day smoker Does the pt drink ETOH?: No Does the pt have substance abuse?: Yes - Immunizations Immunizations are current?: Yes - POLST Patient has POLST: No PD ED PE NORMAL - Vitals Vital signs reviewed: Yes - General General: Alert and oriented X 3, No acute distress, Well developed/nourished - HEENT HEENT: Atraumatic, PERRL, EOMI, Other (tacky mucous membranes) - Cardiac Cardiac: No murmur - Respiratory Respiratory: No respiratory distress, Clear bilaterally - Abdomen Abdomen: Soft, Non distended, Other (TTP epigastrium and RLQ (most pronounced in RLQ) ) - Back Back: No CVA TTP - Derm Derm: Normal color, Warm and dry - Extremities Extremities: No edema - Neuro Neuro: Alert and oriented X 3, health counselor 2-12 intact, No motor deficit, No sensory deficit, Normal speech Eye Opening: Spontaneous Motor: Obeys Commands Verbal: Oriented GCS Score: 15 PD ED PE EXPANDED - Cardiac Cardiac: Tachy, Regular Rhythm Results - Vitals Vitals: Oxygen O2 Source Room air - Labs Labs: Laboratory Tests 06/28/22 06/28/22 06/28/22 02:35 03:30 03:39 WBC 7.0 RBC 3.81 L Hgb 9.7 L Hct 31.0 L MCV 81.4 MCH 25.5 L MCHC 31.3 L RDW 14.6 Plt Count 194 MPV 8.7 Neut # (Auto) 6.0 Lymph # (Auto) 0.6 L Pope # (Auto) 0.3 Eos # (Auto) 0.1 Baso # (Auto) 0.0 Absolute Nucleated RBC 0.00 Nucleated RBC % 0.0 Sodium Potassium Chloride Carbon Dioxide Anion Gap BUN Creatinine Estimated GFR (MDRD) Glucose Calcium Total Bilirubin AST ALT Alkaline Phosphatase Total Protein Albumin Globulin Albumin/Globulin Ratio Lipase Urine Color YELLOW Urine Clarity CLEAR Urine pH 6.0 Ur Specific [place] <=1.005 Urine Protein NEGATIVE Urine Glucose (UA) NEGATIVE Urine Ketones NEGATIVE Urine Occult Blood NEGATIVE Urine Nitrite NEGATIVE Urine Bilirubin NEGATIVE Urine Urobilinogen 0.2 (NORMAL) Ur Leukocyte Esterase NEGATIVE Ur Microscopic Review NOT INDICATED Urine Culture Comments NOT INDICATED Urine HCG, Qual NEGATIVE Nasal Adenovirus (PCR) NOT DETECTED Nasal B. parapertussis DNA (PCR) NOT DETECTED Nasal Coronavir 229E PCR NOT DETECTED Nasal Coronavir HKU1 PCR NOT DETECTED Nasal Coronavir NL63 PCR NOT DETECTED Nasal Coronavir OC43 PCR NOT DETECTED Nasal Enterovir/Rhinovir PCR NOT DETECTED Nasal Influenza B PCR NOT DETECTED Nasal Influenza A PCR NOT DETECTED Nasal Parainfluen 1 PCR NOT DETECTED Nasal Parainfluen 2 PCR NOT DETECTED Nasal Parainfluen 3 PCR NOT DETECTED Nasal Parainfluen 4 PCR NOT DETECTED Nasal RSV (PCR) NOT DETECTED Nasal B.pertussis DNA PCR NOT DETECTED Nasal C.pneumoniae (PCR) NOT DETECTED Federico Human Metapneumo PCR NOT DETECTED Nasal M.pneumoniae (PCR) NOT DETECTED Nasal SARS-CoV-2 (PCR) NOT DETECTED 06/28/22 06/28/22 03:39 07:42 WBC RBC Hgb 10.2 L Hct 33.1 L MCV MCH MCHC RDW Plt Count MPV Neut # (Auto) Lymph # (Auto) Pope # (Auto) Eos # (Auto) Baso # (Auto) Absolute Nucleated RBC Nucleated RBC % Sodium 135 Potassium 3.3 L Chloride 105 Carbon Dioxide 21 Anion Gap 9.0 BUN 15 Creatinine 0.7 Estimated GFR (MDRD) 96 Glucose 113 H Calcium 7.3 L Total Bilirubin 0.9 AST 18 ALT 12 Alkaline Phosphatase 40 L Total Protein 6.9 Albumin 3.9 Globulin 3.0 Albumin/Globulin Ratio 1.3 Lipase 36 Urine Color Urine Clarity Urine pH Ur Specific [place] Urine Protein Urine Glucose (UA) Urine Ketones Urine Occult Blood Urine Nitrite Urine Bilirubin Urine Urobilinogen Ur Leukocyte Esterase Ur Microscopic Review Urine Culture Comments Urine HCG, Qual Nasal Adenovirus (PCR) Nasal B. parapertussis DNA (PCR) Nasal Coronavir 229E PCR Nasal Coronavir HKU1 PCR Nasal Coronavir NL63 PCR Nasal Coronavir OC43 PCR Nasal Enterovir/Rhinovir PCR Nasal Influenza B PCR Nasal Influenza A PCR Nasal Parainfluen 1 PCR Nasal Parainfluen 2 PCR Nasal Parainfluen 3 PCR Nasal Parainfluen 4 PCR Nasal RSV (PCR) Nasal B.pertussis DNA PCR Nasal C.pneumoniae (PCR) Federico Human Metapneumo PCR Nasal M.pneumoniae (PCR) Nasal SARS-CoV-2 (PCR) - Rads (name of study) chest xray Relevant Findings:: Prelim report reviewed, EMP independent interpretation of test (I reviewed these images and there is no acute disease on CXR; specifically, no evidence of infiltrate, pneumothorax, pulmonary edema), See rad report CT head Relevant Findings:: Prelim report reviewed, See rad report CT A/P with IV contrast Relevant Findings:: Prelim report reviewed, See rad report PD Medical Decision Making - ED course Complexity details: reviewed old records (records from ED visit (06/21/22) were requested, faxed to [facility], and reviewed by me. Medications given on that visit included IV valium, dilaudid, NS, toradol, zofran) ED course: CBC without concerning finding, although hemoglobin is 9.7 (was 11.3 when she was in ED one week ago; dilutional effect could be causative or contributory, as she received 2 liters NS during ED stay). Her WBC is normal as are platelets. Minimal hypokalemia (3.3), otherwise normal electrolytes. Normal LFTs and lipase. Normal UA, urine HCG is negative. Surprisingly, her nasal respiratory PCR panel resulted negative for all viruses tested. NAD on CXR. At this point, she had received 1 liter NS IV bolus, 4 mg IV zofran, and 6mg IV morphine sulfate (patient indicated to me that the dilaudid given in the ED "didn't do a thing for my headache" (per patient). Given ongoing headache, as well as abdominal pain with tenderness, I next ordered CTH and CT A/P with IV contrast. I then discussed results of these tests with the patient. The CTH has findings s/o chronic sinusitis (right maxillary) with some other lesser areas of sinus congestion. Given lack of symptoms to suggest sinusitis (such as sinus co ngestion, rhinorrea, post-nasal drip, or headache that is focal or , at least, worst over one or more of the sinuses), I do not think antibiotics would be of benefit at this time. Regarding the CT A/P, note is made of a small complex right adnexal cyst, possibly a hemorrhagic cyst. Given that this area correlates with where she is most tender on exam, and considering the drop, albeit modest, in hgb from last week (at ED) to tonight, a pelvic US was then undertaken to further assess this lesion. Additionally, a repeat h/h was ordered. Prior to the ultrasound being performed, patient says she feels symptoms are returning and thus she is given another 1 liter NS bolus IV, another 6mg IV morphine sulfate, and another 4mg IV zofran. The US confirm a small, hemorrhagic right cyst but no other concerning findings (good blood flow is demonstrated and there is no significant free fluid). I discussed these results with patient and explained to her that, at this point, further emergent testing is unlikely to achieve diagnosis or change (symptomatic) management. She says she is feeling adequate symptom relief and is comfortable with d/c home. Strict return precautions discussed, and I encouraged her to seek follow up with primary care provider as soon as can be arranged. Prescriptions for percocet and zofran are e-prescribed to her pharmacy of choice. I am prescribing a short course of short-acting opioid pain medication for this patient. 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 I have discussed that the opioids are for short term therapy only, and will not be refilled from the ED. Departure - Departure Disposition: 01 Home, Self Care Clinical Impression: Myalgia, Hemorrhagic ovarian cyst Headache Qualifiers: Headache type: unspecified Headache chronicity pattern: unspecified pattern Intractability: not intractable Qualified Code(s): R51.9 - Headache, unspecified Condition: Good Instructions: ED Cephalgia Unspecified, ED Cyst Ovarian Prescriptions: Oxycodone HCl/Acetaminophen [Percocet 5-325 mg Tablet] 1 - 2 each PO Q6H PRN #14 tablet PRN Reason: pain Ondansetron Odt [Zofran] 4 mg TL Q6H PRN #14 tablet PRN Reason: Nausea / Vomiting Comments: There were no concerning findings on the tests performed tonight, including the blood test, urinalysis, chest x-ray, nasal swab for viruses including COVID and influenza, CAT scans of your head, abdomen/pelvis, and pelvic ultrasound. Your red blood cell level was a little bit below the normal range, but not low enough to cause any symptoms, and a repeat check of this same level several hours into your stay had actually gone up a little from the first result. The CT of the abdomen/pelvis did show a right ovarian cyst which appeared to be hemorrhagic (bleeding), and given that it correlates with where you are tender on exam, we then performed an ultrasound. The ultrasound confirms that this does appear to be a hemorrhagic ovarian cyst but that there does not appear to be any significant bleeding from the cyst. Additionally, the cyst is relatively small. While this finding could explain the right lower abdominal/pelvic pain that you are having, it would not explain the headache nor the generalized body aches that you are describing. At this point, further testing in the emergency department is unlikely to result in a diagnosis or change in (symptomatic) management. I have electronically submitted prescriptions for Percocet (opiate/narcotic pain medication) and ondansetron (antinausea medication) to the [facility] pharmacy in [place]. Follow-up as soon as can be arranged with your primary care provider. If you do not have a primary care provider, you can contact your insurance provider (by phone or else through your insurance company's website) to discuss options for establishing yourself with a local primary care provider. I am prescribing a short course of narcotic pain medication for you. These are potentially dangerous and addictive medications that should be used carefully. These medications may constipate you. Take an eafe-ikm-vmirgyo stool softener (docusate) twice daily with plenty of water while taking these medications. If you go 24 hours without a bowel movement, take rhvj-lcy-kwptbai miralax, per package instructions. Do not drink or drive while taking these medications. If you received narcotic or sedating medications while in the emergency department, do not drive for 24 hours. Store this medication in a safe, secure place and out of reach of children. It is a violation of federal law to give or sell this medication to another person or to use in a manner other than prescribed. The ED will not refill narcotic prescriptions, including prescriptions lost or stolen. To dispose of unwanted medications: 1. [facility] at [address] in [place] has a medication drop box. They accept prescription medications (in pill form) Tuesday through Tuesday 9:00 a.m. to 5:00 p.m. 2. The [facility] accepts prescription medications (in pill form only) for disposal year round. Call for more information. 3. Contact the [facility] for the next [facility] sponsored prescription drug collection event. , [phone], or [phone]; Discharge Date/Time: 06/28/22 08:53
[2022-06-28] MEDS ORDERED: ONDANSETRON 4 MG/2 ML VIAL IVP STA ×2 (02:23→05:02)
[2022-06-28] MEDS ORDERED: SODIUM CHLORIDE 0.9% 1,000 ML IV STA ×2 (02:23→05:02)
[2022-06-28 03:36] LABS: B. PARAPERTUSSIS- RESP PCR PAN NOT DETECTED; B. PERTUSSIS- RESP PCR PANEL NOT DETECTED; C. PNEUMONIAE- RESP PCR PANEL NOT DETECTED; CORONAVIRUS 229E-RESP PCR NOT DETECTED; CORONAVIRUS HKU1-RESP PCR NOT DETECTED; CORONAVIRUS NL63-RESP PCR NOT DETECTED; CORONAVIRUS OC43-RESP PCR NOT DETECTED; HUMAN METAPNEUMOVIRUS NOT DETECTED; INFLUENZA A- RESP PCR PANEL NOT DETECTED; INFLUENZA B - RESP PCR PANEL NOT DETECTED; M. PNEUMONIAE- RESP PCR PANEL NOT DETECTED; PARAINFLUENZA VIRUS 1 NOT DETECTED; PARAINFLUENZA VIRUS 2 NOT DETECTED; PARAINFLUENZA VIRUS 3 NOT DETECTED; PARAINFLUENZA VIRUS 4 NOT DETECTED; RHINOVIRUS/ENTEROVIRUS NOT DETECTED; RSV- RESP PCR PANEL NOT DETECTED; SARS-CoV-2 -RESP PCR PANEL NOT DETECTED
[2022-06-28 03:42] LABS: BASOPHILS % (AUTO) 0.3 %; EOSINOPHILS # (AUTO) 0.1 10^3/uL (0.0-0.7); EOSINOPHILS % (AUTO) 1.3 %; HGB - HEMOGLOBIN 9.7 g/dL (12.0-16.0); LYMPHOCYTES # (AUTO) 0.6 10^3/uL (1.5-3.5); LYMPHOCYTES % (AUTO) 8.7 %; MEAN CORPUSCULAR HEMOGLOBIN 25.5 pg (27.0-31.0); MEAN CORPUSCULAR HGB CONC 31.3 g/dL (32.0-36.0); MEAN CORPUSCULAR VOLUME 81.4 fL (81.0-99.0); MEAN PLATELET VOLUME 8.7 fL (7.9-10.8); MONOCYTES # (AUTO) 0.3 10^3/uL (0.0-1.0); MONOCYTES % (AUTO) 4.3 %; PLT - PLATELET COUNT 194 10^3/uL (130-450); RED BLOOD COUNT 3.81 10^6/uL (4.20-5.40); RED CELL DISTRIBUTION WIDTH 14.6 % (12.0-15.0)
[2022-06-28 03:55] LABS: ALBUMIN 3.9 g/dL (3.2-5.5); ALBUMIN/GLOBULIN RATIO 1.3 (1.0-2.2); BILIRUBIN,TOTAL 0.9 mg/dL (0.2-1.0); CALCIUM 7.3 mg/dL (8.5-10.3); CREATININE 0.7 mg/dL (0.4-1.0); POTASSIUM 3.3 mmol/L (3.5-5.0); TOTAL PROTEIN 6.9 g/dL (6.7-8.2)
[2022-06-28 03:58] LABS: BILIRUBIN,URINE NEGATIVE (NEGATIVE); CLARITY,URINE CLEAR (CLEAR); GLUCOSE, URINE (UA) NEGATIVE (NEGATIVE); HCG UR QUAL NEGATIVE; KETONES,URINE (UA) NEGATIVE (NEGATIVE); LEUKOCYTE ESTERASE, URINE NEGATIVE (NEGATIVE); NITRITE,URINE NEGATIVE (NEGATIVE); OCCULT BLOOD,URINE NEGATIVE (NEGATIVE); PROTEIN,URINE NEGATIVE (NEGATIVE); UROBILINOGEN,URINE 0.2 (NORMAL) E.U./dL (NORMAL)
[2022-06-28] MEDS ORDERED: MORPHINE 2 MG/ML CARPUJECT IVP STA ×2 (05:02→06:41)
[2022-06-28] MEDS ORDERED: iohexoL-300 100 ML VIAL ONE (05:20)
[2022-06-28] MEDS ORDERED: iohexoL-300 100 ML VIAL IVP ONE (06:10)
[2022-06-28 07:47] LABS: HCT - HEMATOCRIT 33.1 % (37.0-47.0); HGB - HEMOGLOBIN 10.2 g/dL (12.0-16.0)
--- NOTE | 2022-06-28 08:27 | CT Report ---
PROCEDURE: HEAD WO INDICATIONS: headache TECHNIQUE: Noncontrast 4.5 mm thick angled axial sections acquired from the foramen magnum to the vertex. For r adiation dose reduction, the following was used: automated exposure control, adjustment of mA and/or kV according to patient size. COMPARISON: None. FINDINGS: Image quality: Excellent. CSF spaces: Basal cisterns are patent. No extra-axial fluid collections. Ventricles are normal in size and shape. Brain: No midline shift. No intracranial masses or hemorrhage. Moore-white matter interface is norm al. Skull and face: Calvarium and visualized facial bones are intact, without suspicious lesions. Sinuses: Mucosal thickening in maxillary sinuses bilaterally. The right maxillary sinus is opacified. Mild ethmoidal sinus mucosal thickening bilaterally. The mastoids are clear. IMPRESSION: 1. No acute intracranial abnormality. 2. Bilateral paranasal sinusitis. No significant discrepancy with the preliminary interpretation. Reviewed by: Ilya Mckeon MD on 06/28/2022 8:26 AM PDT Approved by: Ilya Mckeon MD on 06/28/2022 8:26 AM PDT Station ID: [id number]
--- NOTE | 2022-06-28 08:33 | XRAY Report ---
PROCEDURE: Chest 2 View X-Ray INDICATIONS: fever, cough, dyspnea TECHNIQUE: 2 views of the chest were acquired. COMPARISON: Chest x-ray 2 views, 07/25/2017. FINDINGS: Surgical changes and devices: None. Lungs and pleura: No pleural effusions or pneumothorax. Lungs are clear. Mediastinum: Mediastinal contours are normal. Heart size is normal. Bones and chest wall: No suspicious bony abnormalities. Soft tissues appear unremarkable. IMPRESSION: No acute cardiopulmonary disease. No significant discrepancy with the preliminary interpretation. Reviewed by: Ilya Mckeon MD on 06/28/2022 8:32 AM PDT Approved by: Ilya Mckeon MD on 06/28/2022 8:32 AM PDT Station ID: [id number]
[2022-06-28 08:40] VITALS: BP 99/68
--- NOTE | 2022-06-28 08:44 | Ultrasound Report ---
PROCEDURE: Pelvic w/Doppler Complete INDICATIONS: pelvic pain, R TECHNIQUE: Real-time scanning was performed of the pelvic organs, with image documentation. Doppler interrogati on was performed of the ovaries bilaterally. COMPARISON: CT abdomen pelvis 05/31/2022 FINDINGS: No pathologic free abdominal or pelvic fluid. Uterus: Uterus is normal in size at 8.7 x 4.3 x 6.0 cm. The endometrium measures 13.2 mm in combin ed thickness. Ovaries: Right ovary measures 3.1 x 2.6 x 2.7 cm, volume 11.4 cc. Complex cyst is noted measuring 1. 9 x 1.7 x 1.6 cm. Left ovary measures 2.9 x 2.0 x 2.1 cm, volume 6.4 cc. Normal appearing arterial an d venous waveforms are confirmed to each ovary.] Other: No free pelvic fluid. IMPRESSION: Complex right ovarian cyst possibly hemorrhagic. Reviewed by: Cherie Sequeira MD on 06/28/2022 8:42 AM PDT Approved by: Cherie Sequeira MD on 06/28/2022 8:42 AM PDT Station ID: [id number]
--- NOTE | 2022-06-28 09:22 | CT Report ---
PROCEDURE: ABDOMEN/PELVIS W INDICATIONS: generalized abdominal pain, tenderness CONTRAST: 100 ML OMNI 300 TECHNIQUE: After the administration of intravenous contrast, 5 mm thick sections acquired from the diaphragms to the symphysis. 5 mm thick coronal and sagittal reformats were acquired. For radiation dose reducti on, the following was used: automated exposure control, adjustment of mA and/or kV according to garrett ent size. COMPARISON: None. FINDINGS: Image quality: Excellent. ABDOMEN: Lung bases: Bibasilar atelectasis. Heart size is normal. Solid organs: Liver and spleen are normal in size and enhancement. Gallbladder is normal Biliary s ystem is non dilated. Pancreas enhances normally. No adrenal nodules. Kidneys demonstrate normal s ize and enhancement, without hydronephrosis. Peritoneum and bowel: Bowel loops demonstrate normal wall thickness and caliber. No free fluid or a ir. Nodes and vessels: No retroperitoneal or mesenteric adenopathy by size criteria. Aorta and inferior vena cava are normal in size. Miscellaneous: No ventral hernias. PELVIS: Genitourinary: Bladder wall thickness is normal. There is a 2.2 x 1.7 cm rim-enhancing cyst in the right ovary. Uterus and ovaries are otherwise unremarkable. Miscellaneous: No inguinal hernias or adenopathy. Bones: No suspicious bony lesions. No vertebral body compression fractures. IMPRESSION: 1. A 2.2 x 1.7 cm rim-enhancing cyst in the right ovary, most likely a corpus luteum. If clinically i ndicated, pelvic ultrasound can be obtained. 2. No pathological free fluid in the pelvis. 3. Otherwise normal abdominal/pelvic CT exam. No significant discrepancy with the preliminary interpretation Reviewed by: Ilya Mckeon MD on 06/28/2022 9:21 AM PDT Approved by: Ilya Mckeon MD on 06/28/2022 9:21 AM PDT Station ID: [id number]
== END 2022-06-28 08:53 | disposition home or self-care (01) ==
LOC: EDUNIT# → ED 00:58
DX: R51.9 Headache, unspecified (principal); N83.201 Unspecified ovarian cyst, right side; M79.10 Myalgia, unspecified site; F17.200 Nicotine dependence, unspecified, uncomplicated
CPT/HCPCS: 36415; 70450; 71046; 74177; 76856; 80053; 81003; 81025; 83690; 85014; 85018; 85025; 87633; 93975; 96361; 96374; 96375; 96376; 99284; Q9967; 81001; 87086

== ENCOUNTER 2022-10-18 21:21 | Emergency (ER) | payer MEDICAID ==
[2022-10-18 21:32] VITALS: BP 156/90
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
[2022-10-18] MEDS: CEPHALEXIN 250 MG Prepack 8 CAP BOTTLE PO STA (22:01)
[2022-10-18] MEDS: LIDOCAINE JELLY 2% 6 ML JEL.PF.APP TOP STA (22:01)
[2022-10-18] MEDS: BACITRACIN ZINC OINT 1 PACKET TOP STA (22:01)
== END 2022-10-18 22:04 | disposition home or self-care (01) ==
LOC: ED 21:21
DX: T24.231A Burn of second degree of right lower leg, initial encounter (principal); T31.0 Burns involving less than 10% of body surface; X19.XXXA Contact with other heat and hot substances, initial encounter; E03.9 Hypothyroidism, unspecified; F17.200 Nicotine dependence, unspecified, uncomplicated
CPT/HCPCS: 99282; 99283; A9270

== ENCOUNTER 2023-06-01 14:58 | Emergency (ER) | payer OTHER, MEDICAID ==
--- NOTE | 2023-06-01 15:51 | XRAY Report ---
PROCEDURE: Foot 3+V RT INDICATIONS: R foot crush injury TECHNIQUE: 3 views of the foot were acquired. COMPARISON: None. FINDINGS: Bones: No fractures or dislocations. No suspicious bony lesions. Soft tissues: No suspicious soft tissue calcifications or masses. Dorsal soft tissue swelling. IMPRESSION: No acute bony abnormality. Reviewed by: Ilya Mckeon MD on 06/01/2023 3:50 PM PST Approved by: Ilya Mckeon MD on 06/01/2023 3:50 PM PST Station ID: [id number]
--- NOTE | 2023-06-01 16:32 | ED Physician Documentation ---
PD HPI LOWER EXT INJURY - Stated complaint Stated Complaint: RT FOOT INJ - Chief complaint Chief Complaint: Trauma Ext - Additional information Additional information: 32-year-old female presents emergency department for right foot pain. She says that he dropped a pallet on her foot today at work and there is no bruising to the Medial portion of her foot it is painful to walk and ambulate. No open wounds no abrasions no lacerations. PD PAST MEDICAL HISTORY - Past Medical History Cardiovascular: None Respiratory: None Neuro: Headaches Endocrine/Autoimmune: HyPOthyroidism GI: None STAPLER MACHINE: None : None HEENT: None Psych: None Musculoskeletal: None Derm: None - Past Surgical History Past Surgical History: Yes General: Appendectomy /STAPLER MACHINE: section HEENT: Tonsil/Adenoidectomy - Present Medications Home Medications: Ambulatory Orders Medication Instructions Recorded Confirmed Levothyroxine Sodium [Synthroid] 137 mcg PO DAILY 06/01/23 06/01/23 - Allergies Allergies/Adverse Reactions: Allergies Allergy/AdvReac Type Severity Reaction Status Date / Time Penicillins Allergy Intermediate Edema Verified 06/01/23 15:06 - Social History Does the pt smoke?: No Smoking Status: Never smoker Does the pt drink ETOH?: No Does the pt have substance abuse?: Yes - Immunizations Immunizations are current?: Yes - POLST Patient has POLST: No PD ED PE NORMAL - Vitals Vital signs reviewed: Yes - General General: Alert and oriented X 3, No acute distress, Well developed/nourished - Derm Derm: Other (Bruising to the medial aspect of foot close to the big toe.) - Psych Psych: Normal mood Results - Vitals Vitals: Vital Signs - 24 hr 06/01/23 06/01/23 15:02 17:12 Temperature 36.8 C Heart Rate 72 80 Respiratory 16 15 Rate Blood Pressure 131/83 H 130/71 O2 Saturation 100 98 Oxygen O2 Source Room air - Rads (name of study) Right foot x-rays Relevant Findings:: Final report received, EMP independent interpretation of test, Other (No fracture no dislocations no acute findings or abnormalities.) PD Medical Decision Making - ED course ED course: Patient presents emergency department for pain to her right foot after dropping a pallet on it. There is a small bruise to the medial portion of the foot just below the big toe. X-rays were complete no acute findings were visualized. Believe patient is experiencing pain from a contusion. She is told to go home ice elevate Tylenol ibuprofen and follow-up with primary care provider in 7 to 10 days if pain persist for repeat imaging. Departure - Departure Disposition: 01 Home, Self Care Clinical Impression: Foot contusion Qualifiers: Encounter type: initial encounter Laterality: left Qualified Code(s): S90.32XA - Contusion of left foot, initial encounter Instructions: ED Contusion Foot Comments: Thank you for trusting us with your care we have completed x-rays of your foot and it does not appear to have any fractures at this time. Make sure that you are elevating above your heart when able apply ice for 20 minutes at a time 1 hour off and do this frequently throughout the day to help with any inflammation and swelling. You can alternate between Tylenol ibuprofen for any discomfort or pain. Is okay to continue to ambulate and walk on it. If after 7 days the pain is gotten any worse please come back to the ER present your primary care provider for repeat imaging as sometimes there is some hidden fractures that we did not medicinal plant picker on original imaging. Wishing you speedy recovery. Forms: PCP List Discharge Date/Time: 06/01/23 17:12
[2023-06-01] MEDS: ACETAMINOPHEN 325 MG TABLET PO STA (16:37)
[2023-06-01] MEDS: IBUPROFEN 600 MG TABLET PO STA (16:37)
[2023-06-01 17:16] VITALS: BP 130/71; O2SAT 98
== END 2023-06-01 17:12 | disposition home or self-care (01) ==
LOC: ED 14:58
DX: S90.32XA Contusion of left foot, initial encounter (principal); W20.8XXA Other cause of strike by thrown, projected or falling object, initial encounter; Y99.0 Civilian activity done for income or pay; E03.9 Hypothyroidism, unspecified; Z79.899 Other long term (current) drug therapy
CPT/HCPCS: 1040M; 73630; 99283; A9270

== ENCOUNTER 2023-09-12 08:00 | Outpatient (CLI) | payer MEDICAID ==
[2023-09-12 22:28] LABS: CHLAMYDIA TRACHOMATIS DNA NEGATIVE (NEGATIVE); NEISSERIA GONORRHOEAE DNA NEGATIVE (NEGATIVE)
[2023-09-13 04:03] LABS: BACTERIAL VAGINOSIS DNA POSITIVE (NEGATIVE); CANDIDA GLABRATA DNA NEGATIVE (NEGATIVE); CANDIDA GROUP DNA NEGATIVE (NEGATIVE); CANDIDA KRUSEI DNA NEGATIVE (NEGATIVE); TRICHOMONAS VAGINALIS DNA NEGATIVE (NEGATIVE)
== END 2023-09-12 23:59 | disposition home or self-care (01) ==
LOC: LAB.WC 08:00
PROVIDERS: ATTEND Nurse Practitioner
DX: N94.6 Dysmenorrhea, unspecified (principal); N89.8 Other specified noninflammatory disorders of vagina; N92.0 Excessive and frequent menstruation with regular cycle
CPT/HCPCS: 81514; 87491; 87591; 87661

== ENCOUNTER 2023-09-26 18:28 | Outpatient (CLI) | payer MEDICAID ==
--- NOTE | 2023-09-27 08:31 | Ultrasound Report ---
PROCEDURE: Pelvic w/Transvaginal INDICATIONS: DYSMENORRHEA TECHNIQUE: Real-time scanning was performed of the pelvic organs, with image documentation. Additional endovagi nal scanning was necessary due to incomplete visualization of the adnexal and endometrial structures by transabdominal scanning. COMPARISON: Pelvic ultrasound dated 06/28/2022. CT of abdomen and pelvis dated 06/28/2022. FINDINGS: Uterus: Uterus is anteverted and normal in size at 8.6 x 4.6 x 6.3 cm. The myometrium is heterogene ous. The endometrium measures 14.9 mm in combined thickness. Endometrium is heterogeneous in echote xture. No discrete endometrial mass or fluid is seen. Ovaries: The right ovary measures 2.8 x 2.2 x 1.5 cm, with a calculated ovarian volume of 4.8 cc. T he left ovary measures 2.6 x 2.7 x 4.1 cm, with a calculated ovarian volume of 15.2 cc. The ovaries have a normal sonographic appearance. Less than 12 follicles can be seen in each ovary. 5 mm echogen ic foci are noted in each ovary. No adnexal masses are seen. No cystic lesions measuring greater than 3 cm. Other: No pathologic free abdominal or pelvic fluid. IMPRESSION: 1. Heterogeneous myometrial echotexture. No discrete uterine fibroid is seen. Heterogeneous endometri al echotexture, no definite endometrial mass or fluid. 2. Findings abdomen echogenic foci seen in each ovary concerning for calcification from prior injury/ infection. No solid appearing ovarian lesion. No adnexal mass. Previously described complex cyst in r ight ovary is no longer seen. Reviewed by: David Saldana MD on 09/27/2023 8:30 AM PDT Approved by: David Saldana MD on 09/27/2023 8:30 AM PDT Station ID: [id number]
== END 2023-09-26 18:29 | disposition home or self-care (01) ==
LOC: DI 18:28
PROVIDERS: ATTEND Nurse Practitioner
DX: N94.6 Dysmenorrhea, unspecified (principal)